=== PATIENT | male | born 1945 | race Caucasian/White ===

== ENCOUNTER 2021-06-14 09:19 | Inpatient (IN) ==
[2021-06-14] MEDS ORDERED: cefTRIAXone 1 GM VIAL IV ONE (10:05)
[2021-06-14] MEDS ORDERED: morphine 4 MG/ML VIAL IV ONE (10:05)
--- NOTE | 2021-06-14 10:05 | Emergency Department Note ---
Lower Extremity Injury HPI General Chief Complaint: Extremity Injury, Lower Stated Complaint: Left Foot Wound Time Seen by Provider: 06/14/21 09:55 Source: patient Mode of arrival: ambulatory Limitations: no limitations History of Present Illness HPI Narrative: Patient is a 75-year-old gentleman who arrives the emergency department by private vehicle complaining of a left foot wound. History is provided by the p trey as well as discussion with his wound care physician prior to his arrival. The patient stepped on pulse tree nail 2 weeks ago which penetrated his shoe and punctured his foot. Ever since he has been having pain and worsening swelling in his left foot. He saw his wound care physician today who unroofed cultured and packed an abscess in his foot. He was then sent to the emergency department for labs and imaging and IV antibiotics. The patient has been having pain in his left foot that is constantly present. He has tried taking Tylenol at home without any improvement in his symptoms. He denies any associated fever or chills. Related Data Home Medications Medication Instructions Recorded Confirmed aspirin 325 mg capsule 325 mg PO DAILY 06/14/21 06/14/21 atorvastatin 80 mg tablet 80 mg PO QDAY 06/14/21 06/14/21 cholecalciferol (vitamin D3) 50 50 mcg PO QDAY 06/14/21 06/14/21 mcg (2,000 unit) capsule (Vitamin D3) empagliflozin 25 mg tablet 25 mg PO QDAY 06/14/21 06/14/21 insulin glargine 100 unit/mL 36 unit SUBCUT QAM 06/14/21 06/14/21 subcutaneous solution (Lantus U-100 Insulin) lisinopril 10 mg tablet 10 mg PO QDAY 06/14/21 06/14/21 memantine 5 mg tablet 5 mg PO QAM 06/14/21 06/14/21 omega-3 fatty acids-vitamin E 1 cap PO BID 06/14/21 06/14/21 1,000 mg capsule pregabalin 50 mg capsule 50 mg PO QDAY 06/14/21 06/14/21 spironolactone 25 mg tablet 25 mg PO QDAY 06/14/21 06/14/21 Allergies Allergy/AdvReac Type Severity Reaction Status Date / Time No Known Drug Allergies Allergy Unverified 09/26/15 13:31 Review of Systems ROS ROS Narrative: Narrative: All systems ED: reviewed and negative except as stated. Constitutional: Denies fever or chills Respiratory: Denies shortness of breath or cough Gastrointestinal: Denies abdominal pain, nausea, vomiting or diarrhea PFSH Narrative Patient History Narrative: Narrative: Medical/Surgical/Family History All Active Problems (Updated 06/15/21 @ 08:01 by Maycol Tai DO) Puncture wound (Acute) Abscess or cellulitis of foot (Acute) Type 2 diabetes mellitus (Acute) Encounter for wound re-check (Acute) Social History Smoking Status: Never smoker Alcohol Intake Frequency: does not drink Substance Use: does not use Exam Narrative Narrative: I reviewed the vital signs. Gen -patient is awake and alert and in no acute distress. HEENT -head is atraumatic. There is no conjunctival pallor or scleral icterus. Resp -breathing is nonlabored. There is no cyanosis. Patient is able speak comfortably in full sentences while on room air. Derm -skin is warm and dry. MSK -there is an ulceration with packing in place over the plantar surface of the first metatarsophalangeal joint. There is also a small superficial ulceration over the dorsal surface of the distal first metatarsal. There is significant surrounding erythema and edema of the soft tissues which are quite tender to palpation. There is no palpable fluctuance or crepitus to palpation. Pain does not appear out of proportion to the examination findings. There is no pain with passive motion of the toes. Dorsalis pedis and posterior tibial pulse are palpable. Psych -patient has a full affect. Patient does not appear internally stimulated. Neuro -patient answers questions appropriately with fluent speech. Patient moves all present extremities equally. There is no facial asymmetry. General Limitations: no limitations Course Vital Signs Vital signs: Vital Signs Temperature 97.5 F 06/14/21 09:20 Pulse Rate 99 H 06/14/21 09:20 Blood Pressure 89/42 06/14/21 09:20 Temperature 98.2 F 06/15/21 07:04 Pulse Rate 57 L 06/15/21 07:04 Respiratory Rate 12 06/15/21 07:04 Blood Pressure 108/67 06/15/21 07:04 Pulse Oximetry (%) 94 06/15/21 07:04 [facility] MDM Narrative Medical decision making narrative: Patient presents with worsening swelling and drainage from a chronic foot wound. He has a low normal blood pressure on arrival but has a normal lactate. X-rays do reveal findings concerning for osteomyelitis and he has significantly elevated. Given this, I recommended the patient be admitted and he is agreeable. I discussed the patient's history examination and diagnostic findings with Dr. Payne, who agrees with the plan of care and accepts admission. Lab Data Lab results reviewed: Yes I reviewed the patient's lab results. Result diagrams: 06/14/21 10:12 06/15/21 05:46 Labs: Lab Results 06/14/21 06/14/21 06/14/21 Range/Units 10:12 10:12 10:12 WBC 7.5 (4.5-11.0) K/mcL RBC 5.30 (4.63-6.08) M/mcL Hgb 15.8 (13.7-17.5) g/dL Hct 48.8 (40.1-51.0) % POC Hct 51 (41-55) % MCV 92.1 (80.0-100.0) fL MCH 29.8 (26.0-34.0) pg MCHC 32.4 (31.0-36.0) g/dL RDW 14.7 H (11.5-14.5) % Plt Count 226 (140-440) K/mcL MPV 10.5 H (7.4-10.4) fL Neut % (Auto) 68.7 (38.0-78.0) % Lymph % (Auto) 16.0 (15.5-49.0) % [place] % (Auto) 14.1 H (1.0-12.0) % Eos % (Auto) 0.9 (0.0-7.0) % Baso % (Auto) 0.3 (0.0-2.0) % Lymph # (Auto) 1.19 L (1.50-4.80) K/mcL [place] # (Auto) 1.05 H (0.10-0.90) K/mcL Eos # (Auto) 0.07 (0.00-0.70) K/mcL Baso # (Auto) 0.02 (0.00-0.30) K/mcL Absolute Neutrophils 5.12 (1.80-8.00) K/mcL ESR 66 H (0-20) mm/hr VBG Lactic Acid 2.0 (0.5-2.0) mmol/L POC Sodium 138 (133-145) mEq/L POC Potassium 4.7 (3.3-5.1) mEql/L POC Chloride 102 (96-108) mEq/L POC Total CO2 24 (22-30) mmol/L POC BUN 42 H (6-20) mg/dL POC Creatinine 1.4 H (0.6-1.2) mg/dL POC Glucose 251 H (70-105) mg/dL POC WB Ioniz Calcium 1.15 L (1.16-1.32) mmEq/L C-Reactive Protein 5.60 H (0.03-0.80) mg/dL ED POC Tests ED POC Tests: VISHNU - SARS Antigen Negative Discharge Plan Patient/Caregiver Discharge Instructions Pt seen by [employer]/PA only: Yes Clinical Impression: Abscess or cellulitis of foot Patient Disposition: Xfer As Outpt/Obs ([facility]) Discharge Date/Time: 06/14/21 15:51
[2021-06-14] MEDS ORDERED: 0.9 % SODIUM CHLORIDE 1,000 ML IV ONE (10:24)
[2021-06-14 10:31] LABS: POC Blood Urea Nitrogen 42 mg/dL (6-20); POC CO2 24 mmol/L (22-30); POC Calcium, Ionized 1.15 mmEq/L (1.16-1.32); POC Chloride 102 mEq/L (96-108); POC Creatinine 1.4 mg/dL (0.6-1.2); POC Glucose, Random 251 mg/dL (70-105); POC Hematocrit 51 % (41-55); POC Potassium 4.7 mEql/L (3.3-5.1); POC Sodium 138 mEq/L (133-145)
--- NOTE | 2021-06-14 10:42 | XRay Report ---
CLINICAL INFORMATION: Cellulitis COMPARISON: CT approximately six weeks prior 05/03/2021 FINDINGS: Since the CT, moderate osteolysis is developed in the first MTP periarticular region with destruction of the proximal phalangeal base and the metatarsal head. Joint space is also severely narrow. Findings are compatible with septic arthritis with complicating adjacent osteomyelitis. There is moderate periarticular soft tissue swelling. IMPRESSION: Moderate osteolysis in the first MTP periarticular region with severe joint space narrowing developing over just the past six weeks. Findings are highly suspicious for septic arthritis with complicating adjacent osteomyelitis Interpreted and Authenticated by: Stephane Farrell 06/14/21
[2021-06-14 11:17] LABS: Basophils # (Auto) 0.02 K/mcL (0.00-0.30); Basophils % (Auto) 0.3 % (0.0-2.0); Eosinophils # (Auto) 0.07 K/mcL (0.00-0.70); Eosinophils % (Auto) 0.9 % (0.0-7.0); Hematocrit 48.8 % (40.1-51.0); Hemoglobin 15.8 g/dL (13.7-17.5); Lymphocytes # (Auto) 1.19 K/mcL (1.50-4.80); Mean Cell Volume 92.1 fL (80.0-100.0); Mean Corpuscular HGB Conc 32.4 g/dL (31.0-36.0); Mean Platelet Volume 10.5 fL (7.4-10.4); Monocytes # (Auto) 1.05 K/mcL (0.10-0.90); Monocytes % (Auto) 14.1 % (1.0-12.0); Neutrophils % (Auto) 68.7 % (38.0-78.0); Platelet Count 226 K/mcL (140-440); Red Cell Distribution Width 14.7 % (11.5-14.5); WBC 7.5 K/mcL (4.5-11.0)
[2021-06-14 11:35] LABS: Erythrocyte Sedimentation Rate 66 mm/hr (0-20)
--- NOTE | 2021-06-14 14:21 | Internal Med History&Physical ---
HPI History of Present Illness Patient information: Note initiated : 06/14/21 at 2:11 pm Service Date, if different from initiated Date: [] Patient: Garth Chavez 75 y/o M admitted on for Left Foot Wound. Chief Complaint: [] Chief complaint: Foot infection History of present illness: Mr. Chavez is a 75 year old male with a history of type 2 diabetes mellitus, chronic kidney disease stage III who was sent to the emergency department by wound care due to concern of osteomyelitis involving his right foot. In late April the patient stepped on a nail that went through his shoe and he has been struggling with an infection in his right foot ever since. The patient has been on antibiotic treatment with doxycycline and ciprofloxacin. The wound infection initially improved however he later developed redness over his foot. The patient was seen by his primary care provider and a couple times in the emergency department for this issue. He was referred to see Dr. Templeton in clinic who after evaluating the foot and obtaining deep cultures referred the patient to the emergency department for hospital admission, IV antibiotics and further management. In the ED the patient was afebrile, no leukocytosis however inflammatory markers are elevated. Patient's renal function is at his baseline. Review of systems Constitutional: no fever, fatigue, or weight loss Eyes: no vision changes or pain Cardiovascular: no chest pain, no palpitations Respiratory: no cough or dyspnea Gastrointestinal: no abdominal pain, no nausea, vomiting, or diarrhea Genitourinary: no dysuria or difficulty voiding Musculoskeletal: Positive for left foot infection, increasing edema. Integumentary: Positive for left foot redness. Neurological: Positive for peripheral neuropathy, no focal weakness or numbness Psychiatric: no anxiety or depression Physical exam Head: Atraumatic, normal inspection. Eyes: normal appearance, no scleral icterus. Neck: full ROM Respiratory: no respiratory distress. Cardiovascular: normal rate and rhythm, S1, S2. GI/Abdominal: soft, nontender, no guarding. Extremities: Left foot edema over first MTP joint. Neurological: CN II-XII intact, intact motor, intact sensation. Psychiatric: normal mood. Skin: Warmth, redness over first MTP P joint consistent with cellulitis. PFSH PFSH All Active Problems Puncture wound (Acute) Abscess or cellulitis of foot (Acute) Type 2 diabetes mellitus (Acute) Encounter for wound re-check (Acute) Social History alcohol intake frequency: does not drink substance use type: does not use MEDS/ALLERGIES Home Medications and Allergies Home Medications Medication Instructions Recorded Confirmed Type ciprofloxacin HCl 500 mg tablet 500 mg PO BID #14 tab 05/03/21 Rx Allergies Allergy/AdvReac Type Severity Reaction Status Date / Time No Known Drug Allergies Allergy Unverified 09/26/15 13:31 EXAM Constitutional Vitals: Temp Pulse BP Pulse Ox 97.5 F 60 105/67 94 06/14/21 09:20 06/14/21 12:45 06/14/21 12:45 06/14/21 12:45 DATA Data Completed and Pending Labs: Labs from last 24 hours 06/14/21 06/14/21 06/14/21 10:12 10:12 10:12 WBC 7.5 RBC 5.30 Hgb 15.8 Hct 48.8 POC Hct 51 MCV 92.1 MCH 29.8 MCHC 32.4 RDW 14.7 H Plt Count 226 MPV 10.5 H Neut % (Auto) 68.7 Lymph % (Auto) 16.0 [place] % (Auto) 14.1 H Eos % (Auto) 0.9 Baso % (Auto) 0.3 Lymph # (Auto) 1.19 L [place] # (Auto) 1.05 H Eos # (Auto) 0.07 Baso # (Auto) 0.02 Absolute Neutrophils 5.12 ESR 66 H VBG Lactic Acid 2.0 POC Sodium 138 POC Potassium 4.7 POC Chloride 102 POC Total CO2 24 POC BUN 42 H POC Creatinine 1.4 H POC Glucose 251 H POC WB Ioniz Calcium 1.15 L C-Reactive Protein 5.60 H A/P Narrative A/P Narrative: Assessment: 75-year-old male with a history of type 2 diabetes mellitus and chronic kidney disease stage III who stepped on a nail in late April has been struggling with a foot infection ever since referred to the emergency department for further evaluation of possible osteomyelitis. In the emergency department, the patient had an x-ray of his left foot that showed moderate osteolysis of the first MTP with severe joint space narrowing highly suspicious for septic arthritis and adjacent osteomyelitis. #Diabetic foot infection #Osteomyelitis of first MTP periarticular region #Probable septic arthritis of first MTP joint #Type 2 diabetes mellitus #Chronic kidney disease stage III Plan -Plan is to treat this with IV antibiotics and follow clinically. -Vancomycin, cefepime, metronidazole for now. -Surgical cultures obtained prior to admission-the patient was on doxycycline and ciprofloxacin prior to admission. -Follow blood cultures. -De-escalate antibiotics based on culture results. -PICC line pending no growth in blood cultures. -Lantus 10 units at bedtime and correction Humalog SSI-medium. -Hemoglobin A1c. -Analgesics as needed -Monitor renal function periodically. -Ankle brachial index, consider duplex imaging. -Wound care surgery consult: Dr. Jareth Amaya. -Consistent carbohydrate diet. -DVT prophylaxis: Heparin SQ -CODE STATUS: Full -Disposition: Probably home on IV antibiotics via PICC line with home antibiotic infusions versus antibiotics at the infusion center, less likely SNF. Treatment course will be 6 weeks of IV antibiotics possibly followed by oral suppressive antibiotic therapy. Time Spent With Patient Time: Total time spent is greater than 50% in coordination of care (as documented) at patient's floor/unit and/or counseling patient:
[2021-06-14] MEDS ORDERED: DEXTROSE 31 GM ORAL.SUSP PO PRN (16:17)
[2021-06-14] MEDS ORDERED: VANCOMYCIN PER PHARMACY IV SCH (16:17)
[2021-06-14] MEDS ORDERED: DEXTROSE 50% 50 ML VIAL IV PRN (16:17)
[2021-06-14] MEDS ORDERED: ONDANSETRON 4 MG/2 ML VIAL IV PRN (16:17)
[2021-06-14] MEDS ORDERED: ACETAMINOPHEN 325 MG TABLET PO PRN (16:17)
[2021-06-14] MEDS: INSULIN LISPRO 1 UNIT/0.01 ML UNIT SQ SCH ×2 (17:00→21:55)
[2021-06-14] MEDS: CEFEPIME 2 GM VIAL IV SCH (17:16)
[2021-06-14 17:25] LABS: ALT/SGPT 15 U/L (<40); AST/SGOT 16 U/L (<40); Albumin 3.2 gm/dL (3.2-5.2); Albumin/Globulin Ratio 0.8 (1.0-2.3); Alkaline Phosphatase 104 U/L (39-117); Bilirubin,Direct < 0.2 mg/dL (0-0.3); Bilirubin,Total 0.6 mg/dL (0.1-1.0); Blood Urea Nitrogen 30 mg/dL (8-23); Calcium 9.2 mg/dL (8.6-10.4); Carbon Dioxide 23 mmol/L (22-30); Chloride 104 mmol/L (96-108); Glomerular Filtration Rate 54; Glucose 141 mg/dL (70-105); Lactate Dehydrogenase 165 U/L (135-225); Phosphorous 3.3 mg/dL (2.5-4.5); Triglycerides 145 mg/dL (<150); Uric Acid 6.2 mg/dL (2.5-8.0)
[2021-06-14 17:47] LABS: Estimated Average Glucose(eAG) 252 mg/dL; Hemoglobin A1C 10.4 % Hgb (4.0-6.0)
[2021-06-14] MEDS ORDERED: VANCOMYCIN 1,500 MG in 0.9 % SODIUM CHLORIDE 500 ML IV ONE (18:00)
--- NOTE | 2021-06-14 18:21 | General Surgery Consult Note ---
HPI Data of Consult Consult date: 06/14/21 Requesting physician: Oliver Payne Primary Care Provider: Tim Mata Consult Narrative Patient Information: Note initiated : 06/14/21 at 6:20 pm Service Date, if different from initiated Date: [] Patient: Garth Chavez 75 y/o M admitted on 06/14/21 for Left Foot Wound. Chief Complaint:75/M Established patient at wound care center. Sustained penetrating nail injury under LEFT great toe over 2 weeks ago. Failed initial out patient treatment. He had acute inflammatory changes with abscess / cellulitis around wound site and concern for septic arthritis. I had done initial debridement and of wound sites and obtained deep tissue specimen for c/s, before sending him to ER. Evaluated in ER and admitted to Med Surg floor for continuity of care, Chief complaint: Interval changes: deteriorating sound site. LEFT foot plantar DFU Stage 4 Reason for consult: Evaluation and treatment cc:: CC: Oliver Payne MD [facility] All Active Problems (Updated 06/15/21 @ 08:01 by Maycol Tai DO) Puncture wound (Acute) Abscess or cellulitis of foot (Acute) Type 2 diabetes mellitus (Acute) Encounter for wound re-check (Acute) Social History alcohol intake frequency: does not drink substance use type: does not use MEDS/ALLERGIES Home Medications and Allergies Home Medications Medication Instructions Recorded Confirmed Type aspirin 325 mg capsule 325 mg PO DAILY 06/14/21 06/14/21 History atorvastatin 80 mg tablet 80 mg PO QDAY 06/14/21 06/14/21 History cholecalciferol (vitamin D3) 50 50 mcg PO QDAY 06/14/21 06/14/21 History mcg (2,000 unit) capsule (Vitamin D3) empagliflozin 25 mg tablet 25 mg PO QDAY 06/14/21 06/14/21 History insulin glargine 100 unit/mL 36 unit SUBCUT QAM 06/14/21 06/14/21 History subcutaneous solution (Lantus U-100 Insulin) lisinopril 10 mg tablet 10 mg PO QDAY 06/14/21 06/14/21 History memantine 5 mg tablet 5 mg PO QAM 06/14/21 06/14/21 History omega-3 fatty acids-vitamin E 1 cap PO BID 06/14/21 06/14/21 History 1,000 mg capsule pregabalin 50 mg capsule 50 mg PO QDAY 06/14/21 06/14/21 History spironolactone 25 mg tablet 25 mg PO QDAY 06/14/21 06/14/21 History Allergies Allergy/AdvReac Type Severity Reaction Status Date / Time No Known Drug Allergies Allergy Unverified 09/26/15 13:31 Physical Examination Vital Signs Vital signs: Temp Pulse Resp BP Pulse Ox 98.0 F 65 20 113/76 95 06/14/21 16:00 06/14/21 16:00 06/14/21 16:00 06/14/21 16:00 06/14/21 16:00 General physical appearance General physical exam: well developed, well nourished, moderate pain and other (Warm foot, erythematous , edematous wound site and periwound soft tissues and fluctuant area dorsally over MPJ. LEFT great toe.) Eyes Eye exam: PERRL and normal ocular movement ENT ENT exam: normal pinna, normal mucosa and no congestion Head Head exam IM: Present atraumatic and normocephalic Neck Neck exam: no masses, no lymphadenopathy and no venous distension Cardiovascular Cardiovascular exam IM: Present normal rate and rhythm Respiratory Respiratory exam: normal expansion and clear to auscultation Abdomen Abdomen: Present soft, non tender and bowel sounds Integumentary Integumentary: Present other (LEFT forefoot plantar DFU under great toe Stage 4. Dorsal forefoot warm, edematous, with area of fluctuance bertween 1st and 2nd toes.) Neurologic Neurologic: Present other (Diabetic peripheral neuropathy LEFT foot, ankle and leg. Cranial nerves normal. Moves all extremities. NO lateralizing signs. ) Musculoskeletal Musculoskeletal: Present normal gait (NWB Left forefoot because of apin, swelling and discomfort. Acute inflammatory and infection changes LEFT great toe and proximal forefoot,), normal posture and other (NWB) Psychiatric Psychiatric: Present oriented to time, oriented to person, oriented to place, speech is normal and memory intact Results Labs Result diagrams: 06/14/21 10:12 06/15/21 05:46 Labs: Abnormal lab results 06/14/21 06/14/21 06/14/21 Range/Units 10:12 10:12 16:31 RDW 14.7 H (11.5-14.5) % MPV 10.5 H (7.4-10.4) fL [place] % (Auto) 14.1 H (1.0-12.0) % Lymph # (Auto) 1.19 L (1.50-4.80) K/mcL [place] # (Auto) 1.05 H (0.10-0.90) K/mcL ESR 66 H (0-20) mm/hr POC BUN 42 H (6-20) mg/dL BUN 30 H (8-23) mg/dL Creatinine 1.3 H (0.7-1.2) mg/dL POC Creatinine 1.4 H (0.6-1.2) mg/dL Glucose 141 H (70-105) mg/dL POC Glucose 251 H (70-105) mg/dL Hemoglobin A1c 10.4 H (4.0-6.0) % Hgb POC WB Ioniz Calcium 1.15 L (1.16-1.32) mmEq/L GGT 71 H (8-61) U/L C-Reactive Protein 5.60 H (0.03-0.80) mg/dL Globulin 4.0 H (2.2-3.7) gm/dL Albumin/Globulin Ratio 0.8 L (1.0-2.3) Diabetes panel 06/14/21 Range/Units 16:31 Sodium 136 (133-145) mmol/L Potassium 4.5 (3.3-5.1) mmol/L Chloride 104 (96-108) mmol/L Carbon Dioxide 23 (22-30) mmol/L BUN 30 H (8-23) mg/dL Creatinine 1.3 H (0.7-1.2) mg/dL Glucose 141 H (70-105) mg/dL Hemoglobin A1c 10.4 H (4.0-6.0) % Hgb Calcium 9.2 (8.6-10.4) mg/dL AST 16 (<40) U/L ALT 15 (<40) U/L Alkaline Phosphatase 104 (39-117) U/L Total Protein 7.2 (5.9-8.4) gm/dL Albumin 3.2 (3.2-5.2) gm/dL Triglycerides 145 (<150) mg/dL Calcium panel 06/14/21 Range/Units 16:31 Calcium 9.2 (8.6-10.4) mg/dL Phosphorus 3.3 (2.5-4.5) mg/dL Albumin 3.2 (3.2-5.2) gm/dL Pituitary panel 06/14/21 Range/Units 16:31 Sodium 136 (133-145) mmol/L Potassium 4.5 (3.3-5.1) mmol/L Chloride 104 (96-108) mmol/L Carbon Dioxide 23 (22-30) mmol/L BUN 30 H (8-23) mg/dL Creatinine 1.3 H (0.7-1.2) mg/dL Glucose 141 H (70-105) mg/dL Calcium 9.2 (8.6-10.4) mg/dL Adrenal panel 06/14/21 Range/Units 16:31 Sodium 136 (133-145) mmol/L Potassium 4.5 (3.3-5.1) mmol/L Chloride 104 (96-108) mmol/L Carbon Dioxide 23 (22-30) mmol/L BUN 30 H (8-23) mg/dL Creatinine 1.3 H (0.7-1.2) mg/dL Glucose 141 H (70-105) mg/dL Calcium 9.2 (8.6-10.4) mg/dL Total Bilirubin 0.6 (0.1-1.0) mg/dL AST 16 (<40) U/L ALT 15 (<40) U/L Alkaline Phosphatase 104 (39-117) U/L Total Protein 7.2 (5.9-8.4) gm/dL Albumin 3.2 (3.2-5.2) gm/dL All other labs normal. A/P Narrative A/P Narrative: Assessment: Infected LEFT foot DFU under great toe Cellulitis, CSSSI Concern for Septic Arthritis. Plan: Agree with ongoing medial management IV antibiotics per Dr. Payne. Will see patient later with wound care nurse. Time Spent With Patient Time: Total time spent is greater than 50% in coordination of care (as documented) at patient's floor/unit and/or counseling patient: Total time spent with greater than 50% in coordination of care (as documented) at patient's floor/unit and/or counseling patient:: 15 - 24 minutes
[2021-06-14] MEDS: metroNIDAZOLE 500 MG in PREMIX 1 BAG IV SCH (19:08)
[2021-06-14] MEDS: SENNOSIDES 1 TABLET PO SCH (20:37)
[2021-06-14] MEDS: DOCUSATE SODIUM 100 MG CAPSULE PO SCH (20:37)
[2021-06-14] MEDS: HYDROcodone/APAP 5/325MG TABLET PO PRN (21:54)
[2021-06-14] MEDS: INSULIN GLARGINE, HUMAN 1 UNIT/0.01 ML SQ SCH (21:55)
[2021-06-14] MEDS: HEPARIN 5,000 UNIT/ML VIAL SQ SCH (21:56)
[2021-06-14] MEDS: 0.9 % SODIUM CHLORIDE 10 ML SYRINGE IV SCH (21:56)
[2021-06-15] MEDS: metroNIDAZOLE 500 MG in PREMIX 1 BAG IV SCH ×4 (01:07→21:52)
[2021-06-15] MEDS: HYDROcodone/APAP 5/325MG TABLET PO PRN ×4 (01:08→20:07)
[2021-06-15] MEDS: 0.9 % SODIUM CHLORIDE 10 ML SYRINGE IV SCH ×3 (06:00→23:10)
[2021-06-15 07:00] LABS: ALT/SGPT 14 U/L (<40); AST/SGOT 14 U/L (<40); Albumin/Globulin Ratio 0.8 (1.0-2.3); Alkaline Phosphatase 91 U/L (39-117); Bilirubin,Direct < 0.2 mg/dL (0-0.3); Bilirubin,Total 0.4 mg/dL (0.1-1.0); Blood Urea Nitrogen 35 mg/dL (8-23); Calcium 8.7 mg/dL (8.6-10.4); Carbon Dioxide 22 mmol/L (22-30); Chloride 106 mmol/L (96-108); Globulin 3.6 gm/dL (2.2-3.7); Glomerular Filtration Rate 49; Glucose 169 mg/dL (70-105); Lactate Dehydrogenase 142 U/L (135-225); Phosphorous 3.9 mg/dL (2.5-4.5); Triglycerides 173 mg/dL (<150); Uric Acid 7.4 mg/dL (2.5-8.0)
[2021-06-15] MEDS: INSULIN LISPRO 1 UNIT/0.01 ML UNIT SQ SCH ×5 (07:30→21:54)
[2021-06-15] MEDS: CEFEPIME 2 GM VIAL IV SCH ×2 (07:51→21:59)
[2021-06-15] MEDS: MEMANTINE 10 MG TABLET PO SCH (08:52)
[2021-06-15] MEDS: ASPIRIN 81 MG TAB.CHEW PO SCH (08:52)
[2021-06-15] MEDS: PREGABALIN 25 MG CAPSULE PO SCH (08:53)
[2021-06-15] MEDS: DOCUSATE SODIUM 100 MG CAPSULE PO SCH ×2 (08:53→21:52)
[2021-06-15] MEDS: HEPARIN 5,000 UNIT/ML VIAL SQ SCH ×2 (08:53→21:58)
[2021-06-15] MEDS: HYDROmorphone 0.5 MG/0.5 ML SYRINGE IV PRN ×2 (09:31→11:36)
[2021-06-15] MEDS: VANCOMYCIN 1,500 MG in 0.9 % SODIUM CHLORIDE 500 ML IV SCH (11:52)
--- NOTE | 2021-06-15 12:26 | General Surgery Progress Note ---
SUBJECTIVE Subjective Patient information: Note initiated : 06/15/21 at 12:21 pm Service Date, if different from initiated Date: [] Patient: Garth Chavez 75 y/o M admitted on 06/14/21 for Left Foot Wound. Chief Complaint: [] Additional PMFSH (Level 3 Only): Patient seen with Fredrick RN, Wound care nurse. Satisfactory progress. Looks good and feels well. Constitutional Vitals: Vital Signs Temp Pulse Resp BP Pulse Ox 98.2 F 57 L 12 108/67 94 06/15/21 07:04 06/15/21 08:00 06/15/21 07:04 06/15/21 07:04 06/15/21 07:04 Period Temp Pulse Resp BP Sys/Barry Pulse Ox Last 24 Hr 98.0 F-98.9 F 57-88 12-20 105-125/65-76 92-98 Intake and Output 06/14/21 06/15/21 06/15/21 21:59 05:59 13:59 Intake Total 600 100 100 Balance 600 100 100 Weight 183 lb 12.8 oz Intake & Output: Intake & Output 06/14/21 06/15/21 06/15/21 21:59 05:59 13:59 Intake Total 600 100 100 Balance 600 100 100 Weight 183 lb 12.8 oz Intake: IV 600 100 100 Vancomycin 1,500 mg In Sodium 500 Chloride 0.9% 500 ml @ 333.3 mls/hr IV ONCE ONE Rx#: [id number] Flagyl 500 mg In Premix 1 Bag @ 100 100 100 100 mls/hr IV Q8H MELE Rx#: [id number] Other: # Voids 3 Exam: AVSS. SARAH unremarkable L/E. Resolving inflammatory changes. Labs. WBC trending down. Cultures / Sensitivities pending. Local wound care discussed. A/P Narrative A/P Narrative: Assessment: Satisfactory progress. Wound care / activities as ordered. Plan: Continue present management. Reassess / deescalate antibiotics later. Time Spent With Patient Time: Total time spent is greater than 50% in coordination of care (as documented) at patient's floor/unit and/or counseling patient: Total time spent with greater than 50% in coordination of care (as documented) at patient's floor/unit and/or counseling patient:: 15 - 24 minutes
--- NOTE | 2021-06-15 19:05 | Internal Med Progress Note ---
SUBJECTIVE Subjective Patient information: Note initiated : 06/15/21 at 7:03 pm Service Date, if different from initiated Date: [] Patient: Garth Chavez 75 y/o M admitted on 06/14/21 for Left Foot Wound. Chief Complaint: [] Interval history: Mr. Chavez is a 75 year old male with a history of type 2 diabetes mellitus, chronic kidney disease stage III who was sent to the emergency department by wound care due to concern of osteomyelitis involving his right foot. In late April the patient stepped on a nail that went through his shoe and he has been struggling with an infection in his right foot ever since. The patient has been on antibiotic treatment with doxycycline and ciprofloxacin. The wound infection initially improved however he later developed redness over his foot. The patient was seen by his primary care provider and a couple times in the emergency department for this issue. He was referred to see Dr. Templeton in [facility] who after evaluating the foot and obtaining deep cultures referred the patient to the emergency department for hospital admission, IV antibiotics and further management. In the ED the patient was afebrile, no leukocytosis however inflammatory markers are elevated. Patient's renal function is at his baseline. 06/15 Stable overnight, blood cultures showing no growth to date. Continues on van comycin, cefepime, metronidazole IV, awaiting surgical culture results. Physical exam Head: Atraumatic, normal inspection. Eyes: normal appearance, no scleral icterus. Neck: full ROM Respiratory: no respiratory distress. Cardiovascular: normal rate and rhythm, S1, S2. GI/Abdominal: soft, nontender, no guarding. Extremities: Left foot edema over first MTP joint. Neurological: CN II-XII intact, intact motor, intact sensation. Psychiatric: normal mood. Skin: Warmth, redness over first MTP P joint consistent with cellulitis. Constitutional Vitals: Vital Signs Temp Pulse Resp BP Pulse Ox 98.9 F 59 L 18 126/75 94 06/15/21 16:00 06/15/21 16:00 06/15/21 16:00 06/15/21 16:00 06/15/21 16:00 Period Temp Pulse Resp BP Sys/Barry Pulse Ox Last 24 Hr 98.0 F-98.9 F 57-88 12-18 108-126/65-75 93-96 Intake and Output 0306/15/21 06/15/21 05:59 13:59 21:59 Intake Total 100 600 100 Balance 100 600 100 Weight 83.37 kg Patient Weight 06/16/21 05:59 Weight 83.37 kg Intake & Output: Intake & Output 06/15/21 06/15/21 06/15/21 05:59 13:59 21:59 Intake Total 100 600 100 Balance 100 600 100 Weight 83.37 kg Intake: IV 100 600 100 Vancomycin 1,500 mg In Sodium 500 Chloride 0.9% 500 ml @ 333.3 mls/hr IV Q24H [facility] Rx#: [id number] Flagyl 500 mg In Premix 1 Bag @ 100 100 100 100 mls/hr IV Q8H [facility] Rx#: [id number] Other: Meal Lunch Percent of Meal Consumed 100% Feeding Ability Independent # Voids 3 OBJ DATA Labs CBC & Chem 7: 06/14/21 10:12 06/15/21 05:46 Labs: Abnormal Lab Results 06/15/21 06/14/21 06/14/21 05:46 16:31 10:12 RDW MPV [place] % (Auto) Lymph # (Auto) [place] # (Auto) ESR POC BUN 42 H BUN 35 H 30 H Creatinine 1.4 H 1.3 H POC Creatinine 1.4 H Glucose 169 H 141 H POC Glucose 251 H Hemoglobin A1c 10.4 H POC WB Ioniz Calcium 1.15 L GGT 71 H C-Reactive Protein 5.60 H Albumin 3.0 L Globulin 4.0 H Albumin/Globulin Ratio 0.8 L 0.8 L Triglycerides 173 H 06/14/21 10:12 RDW 14.7 H MPV 10.5 H [place] % (Auto) 14.1 H Lymph # (Auto) 1.19 L [place] # (Auto) 1.05 H ESR 66 H POC BUN BUN Creatinine POC Creatinine Glucose POC Glucose Hemoglobin A1c POC WB Ioniz Calcium GGT C-Reactive Protein Albumin Globulin Albumin/Globulin Ratio Triglycerides Meds: Medications Acetaminophen (Acetaminophen 325 Mg Tablet) 650 mg PO Q6HP PRN; Protocol PRN Reason: Per Pain Protocol/Fever > 101 Hydrocodone Bitart/Acetaminophen (Hydrocodone/Apap 5/325mg Tablet) 1 tab PO Q4HP PRN; Protocol PRN Reason: Per Pain Protocol Last Admin: 06/15/21 09:32 Dose: 1 tab Documented by: Aspirin (Aspirin 81 Mg Tab.Chew) 81 mg PO DAILY [facility] Last Admin: 06/15/21 08:52 Dose: 81 mg Documented by: Atorvastatin Calcium (Atorvastatin 40 Mg Tablet) 80 mg PO [facility] Cefepime HCl (Cefepime 2 Gm Vial) 2 gm IV Q12H [facility]; Protocol Last Admin: 06/15/21 07:51 Dose: 2 gm Documented by: Dextrose (Dextrose 50% 50 Ml Vial) 0 ml IV UD PRN PRN Reason: Per Sliding Scale Diagnostic Test (Pha) (Accu-Chek 1 Each Strip) 1 each FS [facility] Last Admin: 06/15/21 17:14 Dose: 1 each Documented by: Docusate Sodium (Docusate Sodium 100 Mg Capsule) 100 mg PO BID [facility] Last Admin: 06/15/21 08:53 Dose: 100 mg Documented by: Glucose (Dextrose 31 Gm Oral.Susp) 15 gm PO PRN PRN PRN Reason: Hypoglycemia Heparin Sodium (Porcine) (Heparin 5,000 Unit/Ml Vial) 5,000 unit SQ Q12 [facility] Last Admin: 06/15/21 08:53 Dose: 5,000 unit Documented by: Hydromorphone HCl (Hydromorphone 0.5 Mg/0.5 Ml Syringe) 0.5 mg IV Q2HP PRN; Protocol PRN Reason: Per Pain Protocol Last Admin: 06/15/21 11:36 Dose: 0.5 mg Documented by: Metronidazole 500 mg/ Premix 100 mls @ 100 mls/hr IV Q8H [facility]; Protocol Last Infusion: 06/15/21 15:25 Dose: Infused Documented by: Vancomycin HCl 1,500 mg/ (Sodium Chloride) 500 mls @ 333.3 mls/hr IV Q24H [facility] Last Infusion: 06/15/21 13:23 Dose: Infused Documented by: Insulin Glargine (Insulin Glargine, Human 1 Unit/0.01 Ml) 10 unit SQ [facility] Last Admin: 06/14/21 21:55 Dose: 10 unit Documented by: Insulin Human Lispro (Insulin Lispro 1 Unit/0.01 Ml Unit) 0 unit SQ [facility]; Protocol Last Admin: 06/15/21 17:15 Dose: 6 units Documented by: Memantine (Memantine 10 Mg Tablet) 5 mg PO DAILY [facility] Last Admin: 06/15/21 08:52 Dose: 5 mg Documented by: Mupirocin (Mupirocin Oint 2% 22gm) 1 dose TOPICAL BID [facility] Ondansetron HCl (Ondansetron 4 Mg/2 Ml Vial) 4 mg IV Q6HP PRN PRN Reason: Nausea And Vomiting Pregabalin (Pregabalin 25 Mg Capsule) 50 mg PO QDAY [facility] Last Admin: 06/15/21 08:53 Dose: 50 mg Documented by: Senna (Sennosides 1 Tablet) 2 tab PO HS [facility] Last Admin: 06/14/21 20:37 Dose: Not Given Documented by: Sodium Chloride (0.9 % Sodium Chloride 10 Ml Syringe) 10 ml IV Q8 [facility] Last Admin: 06/15/21 14:26 Dose: 10 ml Documented by: Vancomycin HCl (Vancomycin Per Pharmacy) 1 order IV UD [facility]; Protocol A/P Narrative A/P Narrative: Assessment: 75-year-old male with a history of type 2 diabetes mellitus and chronic kidney disease stage III who stepped on a nail in late April has been struggling with a foot infection ever since referred to the emergency department for further evaluation of possible osteomyelitis. In the emergency department, the patient had an x-ray of his left foot that showed moderate osteolysis of the first MTP with severe joint space narrowing highly suspicious for septic arthritis and adjacent osteomyelitis. #Diabetic foot infection #Osteomyelitis of first MTP periarticular region #Probable septic arthritis of first MTP joint #Type 2 diabetes mellitus -Hemoglobin A1c was 10.4 #Chronic kidney disease stage III Plan -Vancomycin, cefepime, metronidazole for now. -Surgical cultures obtained prior to admission-the patient was on doxycycline and ciprofloxacin prior to admission. -Follow blood cultures. -De-escalate antibiotics based on culture results. -If blood culture showing no growth to date tomorrow will place PICC line. -Lantus 10 units at bedtime, Humalog 5 units AC at bedtime,correction Humalog SSI-medium. -Continue aspirin, atorvastatin, Lyrica, Namenda. -Holding home empagliflozin until diabetic wound heels- studies have shown an increased risk of lower limb amputation. -Analgesics as needed -Monitor renal function periodically. -Wound care surgery consult: Dr. Jareth Caruso -Consistent carbohydrate diet. -DVT prophylaxis: Heparin SQ -CODE STATUS: Full -Disposition: Probably home on IV antibiotics via PICC line with home antibiotic infusions versus antibiotics at the infusion center, less likely SNF. Treatment course will be 6 weeks of IV antibiotics possibly followed by oral suppressive antibiotic therapy. May need to discharge on insulin regimen for diabetes mellitus as hemoglobin A1c was 10.4. Time Spent With Patient Time: Total time spent is greater than 50% in coordination of care (as documented) at patient's floor/unit and/or counseling patient: QUALITY VTE Deep Vein Thrombosis/Pulmonary Embolism Present on Admission: No
[2021-06-15] MEDS: MUPIROCIN OINT 2% 22GM TOPICAL SCH (20:07)
[2021-06-15] MEDS: ATORVASTATIN 40 MG TABLET PO SCH (20:07)
[2021-06-15] MEDS: SENNOSIDES 1 TABLET PO SCH (21:52)
[2021-06-15] MEDS: INSULIN GLARGINE, HUMAN 1 UNIT/0.01 ML SQ SCH (21:58)
[2021-06-16] MEDS: 0.9 % SODIUM CHLORIDE 10 ML SYRINGE IV SCH ×4 (05:42→21:12)
[2021-06-16] MEDS: metroNIDAZOLE 500 MG in PREMIX 1 BAG IV SCH ×3 (05:43→21:09)
[2021-06-16] MEDS: INSULIN LISPRO 1 UNIT/0.01 ML UNIT SQ SCH ×7 (07:14→21:19)
[2021-06-16 07:39] LABS: ALT/SGPT 12 U/L (<40); AST/SGOT 16 U/L (<40); Albumin 3.2 gm/dL (3.2-5.2); Albumin/Globulin Ratio 0.9 (1.0-2.3); Alkaline Phosphatase 95 U/L (39-117); Bilirubin,Direct < 0.2 mg/dL (0-0.3); Bilirubin,Total 0.5 mg/dL (0.1-1.0); Blood Urea Nitrogen 32 mg/dL (8-23); Calcium 8.9 mg/dL (8.6-10.4); Carbon Dioxide 24 mmol/L (22-30); Chloride 104 mmol/L (96-108); Globulin 3.7 gm/dL (2.2-3.7); Glomerular Filtration Rate 54; Glucose 136 mg/dL (70-105); Lactate Dehydrogenase 167 U/L (135-225); Phosphorous 2.9 mg/dL (2.5-4.5); Triglycerides 113 mg/dL (<150); Uric Acid 6.9 mg/dL (2.5-8.0)
[2021-06-16] MEDS: MEMANTINE 10 MG TABLET PO SCH (08:49)
[2021-06-16] MEDS: DOCUSATE SODIUM 100 MG CAPSULE PO SCH ×2 (08:50→21:11)
[2021-06-16] MEDS: ASPIRIN 81 MG TAB.CHEW PO SCH (08:50)
[2021-06-16] MEDS: PREGABALIN 25 MG CAPSULE PO SCH (08:50)
[2021-06-16] MEDS: MUPIROCIN OINT 2% 22GM TOPICAL SCH ×2 (08:51→21:09)
[2021-06-16] MEDS: HEPARIN 5,000 UNIT/ML VIAL SQ SCH ×2 (08:51→21:10)
[2021-06-16] MEDS: CEFEPIME 2 GM VIAL IV SCH ×2 (08:51→21:11)
[2021-06-16] MEDS: HYDROcodone/APAP 5/325MG TABLET PO PRN ×2 (08:58→16:36)
[2021-06-16] MEDS: VANCOMYCIN 1,500 MG in 0.9 % SODIUM CHLORIDE 500 ML IV SCH (10:55)
[2021-06-16] MEDS ORDERED: 0.9 % SODIUM CHLORIDE 10 ML SYRINGE IV PRN (11:29)
--- NOTE | 2021-06-16 13:50 | Internal Med Progress Note ---
SUBJECTIVE Subjective Patient information: Note initiated : 06/16/21 at 1:49 pm Service Date, if different from initiated Date: [] Patient: Garth Chavez 75 y/o M admitted on 06/14/21 for Left Foot Wound. Chief Complaint: [] Interval history: Mr. Chavez is a 75 year old male with a history of type 2 diabetes mellitus, chronic kidney disease stage III who was sent to the emergency department by wound care due to concern of osteomyelitis involving his right foot. In late April the patient stepped on a nail that went through his shoe and he has been struggling with an infection in his right foot ever since. The patient has been on antibiotic treatment with doxycycline and ciprofloxacin. The wound infection initially improved however he later developed redness over his foot. The patient was seen by his primary care provider and a couple times in the emergency department for this issue. He was referred to see Dr. Templeton in [facility] who after evaluating the foot and obtaining deep cultures referred the patient to the emergency department for hospital admission, IV antibiotics and further management. In the ED the patient was afebrile, no leukocytosis however inflammatory markers are elevated. Patient's renal function is at his baseline. 06/15 Stable overnight, blood cultures showing no growth to date. Continues on van comycin, cefepime, metronidazole IV, awaiting surgical culture results. 06/16 No events overnight. Feels much better, pain well controlled. Blood cultures showing no growth, PICC line ordered. Continues on broad spectrum IV antibiotics, surgical cultures pending. Increased prandial Humalog to 5 units AC. Physical exam Head: Atraumatic, normal inspection. Eyes: normal appearance, no scleral icterus. Neck: full ROM Respiratory: no respiratory distress. Cardiovascular: normal rate and rhythm, S1, S2. GI/Abdominal: soft, nontender, no guarding. Extremities: Left foot edema over first MTP joint. Neurological: CN II-XII intact, intact motor, intact sensation. Psychiatric: normal mood. Skin: Warmth, redness over first MTP P joint consistent with cellulitis. Constitutional Vitals: Vital Signs Temp Pulse Resp BP Pulse Ox 97.6 F 69 22 129/74 94 06/16/21 11:26 06/16/21 11:26 06/16/21 11:26 06/16/21 11:26 06/16/21 11:26 Period Temp Pulse Resp BP Sys/Barry Pulse Ox Last 24 Hr 97.3 F-99.3 F 59-69 18-22 126-138/70-82 93-94 Intake and Output 06/15/21 06/16/21 06/16/21 21:59 05:59 13:59 Intake Total 100 100 600 Balance 100 100 600 Weight 83.37 kg Intake & Output: Intake & Output 06/15/21 06/16/21 06/16/21 21:59 05:59 13:59 Intake Total 100 100 600 Balance 100 100 600 Weight 83.37 kg Intake: IV 100 100 600 Vancomycin 1,500 mg In Sodium 500 Chloride 0.9% 500 ml @ 333.3 mls/hr IV Q24H [facility] Rx#: [id number] Flagyl 500 mg In Premix 1 Bag @ 100 100 100 100 mls/hr IV Q8H [facility] Rx#: [id number] Other: Meal Lunch Percent of Meal Consumed 100% Feeding Ability Independent # Voids 3 OBJ DATA Labs CBC & Chem 7: 06/14/21 10:12 06/16/21 06:07 Labs: Abnormal Lab Results 06/16/21 06/15/21 06/14/21 06:07 05:46 16:31 RDW M[place] % (Auto) Lymph # (Auto) [place] # (Auto) ESR POC BUN BUN 32 H 35 H 30 H Creatinine 1.3 H 1.4 H 1.3 H POC Creatinine Glucose 136 H 169 H 141 H POC Glucose Hemoglobin A1c 10.4 H POC WB Ioniz Calcium GGT 71 H C-Reactive Protein Albumin 3.0 L Globulin 4.0 H Albumin/Globulin Ratio 0.9 L 0.8 L 0.8 L Triglycerides 173 H 06/14/21 06/14/21 10:12 10:12 RDW 14.7 H MPV 10.5 H [place] % (Auto) 14.1 H Lymph # (Auto) 1.19 L [place] # (Auto) 1.05 H ESR 66 H POC BUN 42 H BUN Creatinine POC Creatinine 1.4 H Glucose POC Glucose 251 H Hemoglobin A1c POC WB Ioniz Calcium 1.15 L GGT C-Reactive Protein 5.60 H Albumin Globulin Albumin/Globulin Ratio Triglycerides Meds: Medications Acetaminophen (Acetaminophen 325 Mg Tablet) 650 mg PO Q6HP PRN; Protocol PRN Reason: Per Pain Protocol/Fever > 101 Hydrocodone Bitart/Acetaminophen (Hydrocodone/Apap 5/325mg Tablet) 1 tab PO Q4HP PRN; Protocol PRN Reason: Per Pain Protocol Last Admin: 06/16/21 08:58 Dose: 1 tab Documented by: Aspirin (Aspirin 81 Mg Tab.Chew) 81 mg PO DAILY [facility] Last Admin: 06/16/21 08:50 Dose: 81 mg Documented by: Atorvastatin Calcium (Atorvastatin 40 Mg Tablet) 80 mg PO HS [facility] Last Admin: 06/15/21 20:07 Dose: 80 mg Documented by: Cefepime HCl (Cefepime 2 Gm Vial) 2 gm IV Q12H [facility]; Protocol Last Admin: 06/16/21 08:51 Dose: 2 gm Documented by: Dextrose (Dextrose 50% 50 Ml Vial) 0 ml IV UD PRN PRN Reason: Per Sliding Scale Diagnostic Test (Pha) (Accu-Chek 1 Each Strip) 1 each FS ACHS [facility] Last Admin: 06/16/21 11:12 Dose: 1 each Documented by: Docusate Sodium (Docusate Sodium 100 Mg Capsule) 100 mg PO BID [facility] Last Admin: 06/16/21 08:50 Dose: 100 mg Documented by: Glucose (Dextrose 31 Gm Oral.Susp) 15 gm PO PRN PRN PRN Reason: Hypoglycemia Heparin Sodium (Porcine) (Heparin 5,000 Unit/Ml Vial) 5,000 unit SQ Q12 [facility] Last Admin: 06/16/21 08:51 Dose: 5,000 unit Documented by: Heparin Sodium (Porcine) (Heparin Flush 10 Units/Ml 5 Ml Syringe) 2 ml IV Q12 [facility] Hydromorphone HCl (Hydromorphone 0.5 Mg/0.5 Ml Syringe) 0.5 mg IV Q2HP PRN; Protocol PRN Reason: Per Pain Protocol Last Admin: 06/15/21 11:36 Dose: 0.5 mg Documented by: Metronidazole 500 mg/ Premix 100 mls @ 100 mls/hr IV Q8H [facility]; Protocol Last Infusion: 06/16/21 07:11 Dose: Infused Documented by: Vancomycin HCl 1,500 mg/ (Sodium Chloride) 500 mls @ 333.3 mls/hr IV Q24H [facility] Last Infusion: 06/16/21 12:48 Dose: Infused Documented by: Insulin Glargine (Insulin Glargine, Human 1 Unit/0.01 Ml) 10 unit SQ [facility] Last Admin: 06/15/21 21:58 Dose: 10 unit Documented by: Insulin Human Lispro (Insulin Lispro 1 Unit/0.01 Ml Unit) 0 unit SQ [facility]; Protocol Last Admin: 06/16/21 11:13 Dose: 6 units Documented by: Insulin Human Lispro (Insulin Lispro 1 Unit/0.01 Ml Unit) 3 unit SQ [facility] Last Admin: 06/16/21 11:13 Dose: 3 units Documented by: Memantine (Memantine 10 Mg Tablet) 5 mg PO DAILY [facility] Last Admin: 06/16/21 08:49 Dose: 5 mg Documented by: Mupirocin (Mupirocin Oint 2% 22gm) 1 dose TOPICAL BID [facility] Last Admin: 06/16/21 08:51 Dose: 1 dose Documented by: Ondansetron HCl (Ondansetron 4 Mg/2 Ml Vial) 4 mg IV Q6HP PRN PRN Reason: Nausea And Vomiting Pregabalin (Pregabalin 25 Mg Capsule) 50 mg PO QDAY [facility] Last Admin: 06/16/21 08:50 Dose: 50 mg Documented by: Senna (Sennosides 1 Tablet) 2 tab PO [facility] Last Admin: 06/15/21 21:52 Dose: Not Given Documented by: Sodium Chloride (0.9 % Sodium Chloride 10 Ml Syringe) 10 ml IV Q8 [facility] Last Admin: 06/16/21 05:42 Dose: 10 ml Documented by: Sodium Chloride (0.9 % Sodium Chloride 10 Ml Syringe) 10 ml IV UD PRN PRN Reason: FLUSH Sodium Chloride (0.9 % Sodium Chloride 10 Ml Syringe) 10 ml IV Q12 [facility] Vancomycin HCl (Vancomycin Per Pharmacy) 1 order IV UD [facility]; Protocol A/P Narrative A/P Narrative: Assessment: 75-year-old male with a history of type 2 diabetes mellitus and chronic kidney disease stage III who stepped on a nail in late April has been struggling with a foot infection ever since referred to the emergency department for further evaluation of possible osteomyelitis. In the emergency department, the patient had an x-ray of his left foot that showed moderate osteolysis of the first MTP with severe joint space narrowing highly suspicious for septic arthritis and adjacent osteomyelitis. #Diabetic foot infection #Osteomyelitis of first MTP periarticular region #Probable septic arthritis of first MTP joint #Type 2 diabetes mellitus -Hemoglobin A1c was 10.4 #Chronic kidney disease stage III Plan -Vancomycin, cefepime, metronidazole for now. -Surgical cultures obtained prior to admission-the patient was on doxycycline and ciprofloxacin prior to admission. -Follow blood cultures. -De-escalate antibiotics based on culture results. -PICC line. -Lantus 10 units at bedtime, Humalog 5 units AC at bedtime, correction Humalog SSI-medium. -Continue aspirin, atorvastatin, Lyrica, Namenda. -Holding home empagliflozin until diabetic wound heels- studies have shown an increased risk of lower limb amputation. -Analgesics as needed -Monitor renal function periodically. -Wound care surgery consult: Dr. Phipps. -Consistent carbohydrate diet. -DVT prophylaxis: Heparin SQ -CODE STATUS: Full -Disposition: Probably home on IV antibiotics via PICC line with home antibiotic infusions versus antibiotics at the infusion center, less likely SNF. Treatment course will be 6 weeks of IV antibiotics possibly followed by oral suppressive antibiotic therapy. May need to discharge on insulin regimen for diabetes mellitus as hemoglobin A1c was 10.4. Time Spent With Patient Time: Total time spent is greater than 50% in coordination of care (as documented) at patient's floor/unit and/or counseling patient: QUALITY VTE Deep Vein Thrombosis/Pulmonary Embolism Present on Admission: No
--- NOTE | 2021-06-16 13:59 | General Surgery Progress Note ---
SUBJECTIVE Subjective Patient information: Note initiated : 06/16/21 at 1:55 pm Service Date, if different from initiated Date: [] Patient: Garth Chavez 75 y/o M admitted on 06/14/21 for Left Foot Wound. Chief Complaint: [] Additional PMFSH (Level 3 Only): Doing better, DENIES any symptoms. Constitutional Vitals: Vital Signs Temp Pulse Resp BP Pulse Ox 97.6 F 69 22 129/74 94 06/16/21 11:26 06/16/21 11:26 06/16/21 11:26 06/16/21 11:26 06/16/21 11:26 Period Temp Pulse Resp BP Sys/Barry Pulse Ox Last 24 Hr 97.3 F-99.3 F 59-69 18- 126-138/70-82 93-94 Intake and Output 06/15/21 06/16/21 06/16/21 21:59 05:59 13:59 Intake Total 100 100 600 Balance 100 100 600 Weight 183 lb 12.8 oz Intake & Output: Intake & Output 06/15/21 06/16/21 06/16/21 21:59 05:59 13:59 Intake Total 100 100 600 Balance 100 100 600 Weight 183 lb 12.8 oz Intake: IV 100 100 600 Vancomycin 1,500 mg In Sodium 500 Chloride 0.9% 500 ml @ 333.3 mls/hr IV Q24H [facility] Rx#: [id number] Flagyl 500 mg In Premix 1 Bag @ 100 100 100 100 mls/hr IV Q8H [facility] Rx#: [id number] Other: Meal Lunch Percent of Meal Consumed 100% Feeding Ability Independent # Voids 3 Exam: AVSS. Unremarkable SARAH. LEFT foot resolving inflammatory changes. Wound cultures pending. Will check CRP A1c, Prealbumin, TSH in AM A/P Narrative A/P Narrative: Assessment: Satisfactory progress. Anticipate D/C planning after weekend Plan: Labs for AM Continue current management. . Time Spent With Patient Time: Total time spent is greater than 50% in coordination of care (as documented) at patient's floor/unit and/or counseling patient: Total time spent with greater than 50% in coordination of care (as documented) at patient's floor/unit and/or counseling patient:: 15 - 24 minutes
--- NOTE | 2021-06-16 15:39 | XRay Report ---
CLINICAL INFORMATION: PICC line placement COMPARISON: None. TECHNIQUE: Portable FINDINGS: Right PICC line tip overlies the SVC right atrial junction. The heart size, mediastinum and pulmonary vessels are unremarkable. The lungs are clear. There are no effusions. The bones and soft tissues are within normal limits. IMPRESSION: PICC line in satisfactory position. No cardiopulmonary disease evident Interpreted and Authenticated by: Stephane Farrell 06/16/21
[2021-06-16] MEDS: ATORVASTATIN 40 MG TABLET PO SCH (21:11)
[2021-06-16] MEDS: SENNOSIDES 1 TABLET PO SCH (21:12)
[2021-06-16] MEDS: INSULIN GLARGINE, HUMAN 1 UNIT/0.01 ML SQ SCH (21:20)
[2021-06-17] MEDS: metroNIDAZOLE 500 MG in PREMIX 1 BAG IV SCH ×3 (05:56→21:29)
[2021-06-17] MEDS: 0.9 % SODIUM CHLORIDE 10 ML SYRINGE IV SCH ×5 (05:57→21:29)
[2021-06-17 07:03] LABS: Prealbumin 19.3 mg/dL (20.0-40.0)
[2021-06-17] MEDS: INSULIN LISPRO 1 UNIT/0.01 ML UNIT SQ SCH ×7 (07:03→21:28)
[2021-06-17] MEDS: HYDROcodone/APAP 5/325MG TABLET PO PRN (07:12)
[2021-06-17 07:16] LABS: Thyroid Stimulating Hormone 5.91 uIU/mL (0.27-5.01)
[2021-06-17 07:58] LABS: Estimated Average Glucose(eAG) 246 mg/dL; Hemoglobin A1C 10.2 % Hgb (4.0-6.0)
[2021-06-17] MEDS: HEPARIN 5,000 UNIT/ML VIAL SQ SCH ×2 (08:16→21:27)
[2021-06-17] MEDS: PREGABALIN 25 MG CAPSULE PO SCH (08:16)
[2021-06-17] MEDS: DOCUSATE SODIUM 100 MG CAPSULE PO SCH ×2 (08:16→21:28)
[2021-06-17] MEDS: ASPIRIN 81 MG TAB.CHEW PO SCH (08:16)
[2021-06-17] MEDS: MEMANTINE 10 MG TABLET PO SCH (08:17)
[2021-06-17] MEDS: CEFEPIME 2 GM VIAL IV SCH ×2 (08:27→21:26)
[2021-06-17] MEDS: MUPIROCIN OINT 2% 22GM TOPICAL SCH ×2 (08:27→21:27)
--- NOTE | 2021-06-17 10:41 | Internal Med Progress Note ---
SUBJECTIVE Subjective Patient information: Note initiated : 06/17/21 at 10:36 am Service Date, if different from initiated Date: [] Patient: Garth Chavez 75 y/o M admitted on 06/14/21 for Left Foot Wound. Chief Complaint: [] Interval history: Mr. Chavez is a 75 year old male with a history of type 2 diabetes mellitus, chronic kidney disease stage III who was sent to the emergency department by wound care due to concern of osteomyelitis involving his right foot. In late April the patient stepped on a nail that went through his shoe and he has been struggling with an infection in his right foot ever since. The patient has been on antibiotic treatment with doxycycline and ciprofloxacin. The wound infection initially improved however he later developed redness over his foot. The patient was seen by his primary care provider and a couple times in the emergency department for this issue. He was referred to see Dr. Templeton in [facility] who after evaluating the foot and obtaining deep cultures referred the patient to the emergency department for hospital admission, IV antibiotics and further management. In the ED the patient was afebrile, no leukocytosis however inflammatory markers are elevated. Patient's renal function is at his baseline. 06/15 Stable overnight, blood cultures showing no growth to date. Continues on va ncomycin, cefepime, metronidazole IV, awaiting surgical culture results. 06/16 No events overnight. Feels much better, pain well controlled. Blood cultures showing no growth, PICC line ordered. Continues on broad spectrum IV antibiotics, surgical cultures pending. Increased prandial Humalog to 5 units AC. 06/17 No events overnight, the patient is doing well overall but continues on broad-spectrum antibiotics. Discussed with Dr. Templeton, he said that the surgical cultures which were obtained in clinic prior to admission are still pending. Anticipate discharge to home in 1 to 2 days when culture results are available for targeted antibiotic therapy. Physical exam Head: Atraumatic, normal inspection. Eyes: normal appearance, no scleral icterus. Neck: full ROM Respiratory: no respiratory distress. Cardiovascular: normal rate and rhythm, S1, S2. GI/Abdominal: soft, nontender, no guarding. Extremities: Left foot edema over first MTP joint. Neurological: CN II-XII intact, intact motor, intact sensation. Psychiatric: normal mood. Skin: Warmth, redness over first MTP P joint consistent with cellulitis. Constitutional Vitals: Vital Signs Temp Pulse Resp BP Pulse Ox 98.2 F 62 18 120/70 94 06/17/21 07:31 06/17/21 07:31 06/17/21 07:31 06/17/21 07:31 06/17/21 07:31 Period Temp Pulse Resp BP Sys/Barry Pulse Ox Last 24 Hr 97.6 F-98.7 F 62-74 18-22 120-136/68-84 94-95 Intake and Output 06/16/21 06/17/21 06/17/21 20:59 05:59 13:59 Intake Total 340 Output Total Balance 340 Weight Intake & Output: Intake & Output 06/16/21 06/17/21 06/17/21 20:59 05:59 13:59 Intake Total 340 Output Total Balance 340 Weight Intake: IV 100 Flagyl 500 mg In Premix 1 Bag @ 100 100 mls/hr IV Q8H [facility] Rx#: [id number] Oral 240 Output: Void Amount Other: Meal Breakfast Percent of Meal Consumed 80 Feeding Ability Independent Urine Appearance Urine Color Urine Odor OBJ DATA Labs CBC & Chem 7: 06/14/21 10:12 06/16/21 06:07 Labs: Abnormal Lab Results 06/17/21 06/16/21 06/15/21 05:28 06:07 05:46 RDW MPV [place] % (Auto) Lymph # (Auto) [place] # (Auto) ESR POC BUN BUN 32 H 35 H Creatinine 1.3 H 1.4 H POC Creatinine Glucose 136 H 169 H POC Glucose Hemoglobin A1c 10.2 H POC WB Ioniz Calcium GGT C-Reactive Protein 1.50 H Albumin 3.0 L Globulin Albumin/Globulin Ratio 0.9 L 0.8 L Prealbumin 19.3 L Triglycerides 173 H TSH 5.91 H 06/14/21 06/14/21 06/14/21 16:31 10:12 10:12 RDW 14.7 H MPV 10.5 H [place] % (Auto) 14.1 H Lymph # (Auto) 1.19 L [place] # (Auto) 1.05 H ESR 66 H POC BUN 42 H BUN 30 H Creatinine 1.3 H POC Creatinine 1.4 H Glucose 141 H POC Glucose 251 H Hemoglobin A1c 10.4 H POC WB Ioniz Calcium 1.15 L GGT 71 H C-Reactive Protein 5.60 H Albumin Globulin 4.0 H Albumin/Globulin Ratio 0.8 L Prealbumin Triglycerides TSH Meds: Medications Acetaminophen (Acetaminophen 325 Mg Tablet) 650 mg PO Q6HP PRN; Protocol PRN Reason: Per Pain Protocol/Fever > 101 Hydrocodone Bitart/Acetaminophen (Hydrocodone/Apap 5/325mg Tablet) 1 tab PO Q4HP PRN; Protocol PRN Reason: Per Pain Protocol Last Admin: 06/17/21 07:12 Dose: 1 tab Documented by: Aspirin (Aspirin 81 Mg Tab.Chew) 81 mg PO DAILY [facility] Last Admin: 06/17/21 08:16 Dose: 81 mg Documented by: Atorvastatin Calcium (Atorvastatin 40 Mg Tablet) 80 mg PO HS [facility] Last Admin: 06/16/21 21:11 Dose: 80 mg Documented by: Cefepime HCl (Cefepime 2 Gm Vial) 2 gm IV Q12H [facility]; Protocol Last Admin: 06/17/21 08:27 Dose: 2 gm Documented by: Dextrose (Dextrose 50% 50 Ml Vial) 0 ml IV UD PRN PRN Reason: Per Sliding Scale Diagnostic Test (Pha) (Accu-Chek 1 Each Strip) 1 each FS ACHS [facility] Last Admin: 06/17/21 07:02 Dose: 1 each Documented by: Docusate Sodium (Docusate Sodium 100 Mg Capsule) 100 mg PO BID [facility] Last Admin: 06/17/21 08:16 Dose: 100 mg Documented by: Glucose (Dextrose 31 Gm Oral.Susp) 15 gm PO PRN PRN PRN Reason: Hypoglycemia Heparin Sodium (Porcine) (Heparin 5,000 Unit/Ml Vial) 5,000 unit SQ Q12 [facility] Last Admin: 06/17/21 08:16 Dose: 5,000 unit Documented by: Heparin Sodium (Porcine) (Heparin Flush 10 Units/Ml 5 Ml Syringe) 2 ml IV Q12 [facility] Last Admin: 06/17/21 08:27 Dose: 2 ml Documented by: Hydromorphone HCl (Hydromorphone 0.5 Mg/0.5 Ml Syringe) 0.5 mg IV Q2HP PRN; Protocol PRN Reason: Per Pain Protocol Last Admin: 06/15/21 11:36 Dose: 0.5 mg Documented by: Metronidazole 500 mg/ Premix 100 mls @ 100 mls/hr IV Q8H [facility]; Protocol Last Infusion: 06/17/21 07:14 Dose: Infused Documented by: Vancomycin HCl 1,500 mg/ (Sodium Chloride) 500 mls @ 333.3 mls/hr IV Q24H [facility] Last Infusion: 06/16/21 12:48 Dose: Infused Documented by: Insulin Glargine (Insulin Glargine, Human 1 Unit/0.01 Ml) 10 unit SQ [facility] Last Admin: 06/16/21 21:20 Dose: 10 unit Documented by: Insulin Human Lispro (Insulin Lispro 1 Unit/0.01 Ml Unit) 0 unit SQ [facility]; Protocol Last Admin: 06/17/21 07:03 Dose: Not Given Documented by: Insulin Human Lispro (Insulin Lispro 1 Unit/0.01 Ml Unit) 5 unit SQ AC [facility] Last Admin: 06/17/21 07:12 Dose: 5 units Documented by: Memantine (Memantine 10 Mg Tablet) 5 mg PO DAILY [facility] Last Admin: 06/17/21 08:17 Dose: 5 mg Documented by: Mupirocin (Mupirocin Oint 2% 22gm) 1 dose TOPICAL BID [facility] Last Admin: 06/17/21 08:27 Dose: 1 dose Documented by: Ondansetron HCl (Ondansetron 4 Mg/2 Ml Vial) 4 mg IV Q6HP PRN PRN Reason: Nausea And Vomiting Pregabalin (Pregabalin 25 Mg Capsule) 50 mg PO QDAY [facility] Last Admin: 06/17/21 08:16 Dose: 50 mg Documented by: Senna (Sennosides 1 Tablet) 2 tab PO [facility] Last Admin: 06/16/21 21:12 Dose: Not Given Documented by: Sodium Chloride (0.9 % Sodium Chloride 10 Ml Syringe) 10 ml IV Q8 [facility] Last Admin: 06/17/21 05:57 Dose: 10 ml Documented by: Sodium Chloride (0.9 % Sodium Chloride 10 Ml Syringe) 10 ml IV UD PRN PRN Reason: FLUSH Sodium Chloride (0.9 % Sodium Chloride 10 Ml Syringe) 10 ml IV Q12 [facility] Last Admin: 06/17/21 08:36 Dose: 10 ml Documented by: Vancomycin HCl (Vancomycin Per Pharmacy) 1 order IV UD [facility]; Protocol A/P Narrative A/P Narrative: Assessment: 75-year-old male with a history of type 2 diabetes mellitus and chronic kidney disease stage III who stepped on a nail in late April has been struggling with a foot infection ever since referred to the emergency department for further evaluation of possible osteomyelitis. In the emergency department, the patient had an x-ray of his left foot that showed moderate osteolysis of the first MTP with severe joint space narrowing highly suspicious for septic ar thritis and adjacent osteomyelitis. #Diabetic foot infection #Osteomyelitis of first MTP periarticular region #Probable septic arthritis of first MTP joint #Type 2 diabetes mellitus -Hemoglobin A1c was 10.4 #Chronic kidney disease stage III Plan -Vancomycin, cefepime, metronidazole for now. -Surgical cultures obtained prior to admission-note that the patient was on doxycycline and ciprofloxacin prior to admission. -Follow blood cultures-NGTD. -De-escalate antibiotics based on culture results. -PICC line placed in right upper extremity.. -Lantus 10 units at bedtime, Humalog 5 units AC at bedtime, correction Humalog SSI-medium. -Continue aspirin, atorvastatin, Lyrica, Namenda. -Holding home empagliflozin until diabetic wound heels- studies have shown an increased risk of lower limb amputation. -Analgesics as needed -Monitor renal function periodically. -Dr. Sharpe following. -Consistent carbohydrate diet. -DVT prophylaxis: Heparin SQ -CODE STATUS: Full -Disposition: Probably home on IV antibiotics via PICC line with home antibiotic infusions versus antibiotics at the infusion center. Treatment course will be 6 weeks of IV antibiotics possibly followed by oral suppressive antibiotic therapy. May consider referral to ID in [place] or [place] for further management. May need to be discharged on a basal/bolus insulin regimen in the near term for optimal wound outcome of the foot infection as hemoglobin A1c was 10.4. Time Spent With Patient Time: Total time spent is greater than 50% in coordination of care (as documented) at patient's floor/unit and/or counseling patient: QUALITY VTE Deep Vein Thrombosis/Pulmonary Embolism Present on Admission: No
[2021-06-17] MEDS: VANCOMYCIN 1,500 MG in 0.9 % SODIUM CHLORIDE 500 ML IV SCH (10:54)
--- NOTE | 2021-06-17 13:35 | Internal Med Progress Note ---
SUBJECTIVE Subjective Patient information: Note initiated : 06/17/21 at 1:30 pm Service Date, if different from initiated Date: [] Patient: Garth Chavez 75 y/o M admitted on 06/14/21 for Left Foot Wound. Chief Complaint: [] Interval history: Mr. Chavez is a 75 year old male with a history of type 2 diabetes mellitus, chronic kidney disease stage III who was sent to the emergency department by wound care due to concern of osteomyelitis involving his right foot. In late April the patient stepped on a nail that went through his shoe and he has been struggling with an infection in his right foot ever since. The patient has been on antibiotic treatment with doxycycline and ciprofloxacin. The wound infection initially improved however he later developed redness over his foot. The patient was seen by his primary care provider and a couple times in the emergency department for this issue. He was referred to see Dr. Templeton in [facility] who after evaluating the foot and obtaining deep cultures referred the patient to the emergency department for hospital admission, IV antibiotics and further management. In the ED the patient was afebrile, no leukocytosis however inflammatory markers are elevated. Patient's renal function is at his baseline. 06/15 Stable overnight, blood cultures showing no growth to date. Continues on van comycin, cefepime, metronidazole IV, awaiting surgical culture results. 06/16 No events overnight. Feels much better, pain well controlled. Blood cultures showing no growth, PICC line ordered. Continues on broad spectrum IV antibiotics, surgical cultures pending. Increased prandial Humalog to 5 units AC. 06/17 No events overnight, the patient is doing well overall but continues on broad-spectrum antibiotics. Discussed with Dr. Templeton, he said that the surgical cultures which were obtained in clinic prior to admission are still pending. Anticipate discharge to home in 1 to 2 days when culture results are available for targeted antibiotic therapy. 06/18 Constitutional Vitals: Vital Signs Temp Pulse Resp BP Pulse Ox 97.1 F 66 16 121/74 93 06/17/21 11:06 06/17/21 11:06 06/17/21 11:06 06/17/21 11:06 06/17/21 11:06 Period Temp Pulse Resp BP Sys/Barry Pulse Ox Last 24 Hr 97.1 F-98.7 F 62-74 16-18 120-136/68-84 93-95 Intake and Output 06/16/21 06/17/21 06/17/21 20:59 05:59 13:59 Intake Total 820 Output Total Balance 820 Weight Intake & Output: Intake & Output 06/16/21 06/17/21 06/17/21 20:59 05:59 13:59 Intake Total 820 Output Total Balance 820 Weight Intake: IV 100 Flagyl 500 mg In Premix 1 Bag @ 100 100 mls/hr IV Q8H [facility] Rx#: [id number] Oral 720 Output: Void Amount Other: Meal Lunch Percent of Meal Consumed 100% Feeding Ability Independent Urine Appearance Urine Color Urine Odor Exam: General: Alert, Awake, No acute Distress Eyes/N/T: EOMI, Head/Neck: neck supple, CV: RRR, No murmurs, Pulm: Clear b/l, no wheezing/rhonchi/rales Abd: soft, nontender, +BS x4 Ext: no clubbing/cyanosis. Left foot edema over first MTP jint Neuro: Alert, no focal deficits, moves all extremities, Skin: warm/dry OBJ DATA Labs CBC & Chem 7: 06/14/21 10:12 06/16/21 06:07 Labs: Abnormal Lab Results 06/17/21 06/16/21 06/15/21 05:28 06:07 05:46 BUN 32 H 35 H Creatinine 1.3 H 1.4 H Glucose 136 H 169 H Hemoglobin A1c 10.2 H GGT C-Reactive Protein 1.50 H Albumin 3.0 L Globulin Albumin/Globulin Ratio 0.9 L 0.8 L Prealbumin 19.3 L Triglycerides 173 H TSH 5.91 H 06/14/21 16:31 BUN 30 H Creatinine 1.3 H Glucose 141 H Hemoglobin A1c 10.4 H GGT 71 H C-Reactive Protein Albumin Globulin 4.0 H Albumin/Globulin Ratio 0.8 L Prealbumin Triglycerides TSH Meds: Medications Acetaminophen (Acetaminophen 325 Mg Tablet) 650 mg PO Q6HP PRN; Protocol PRN Reason: Per Pain Protocol/Fever > 101 Hydrocodone Bitart/Acetaminophen (Hydrocodone/Apap 5/325mg Tablet) 1 tab PO Q4HP PRN; Protocol PRN Reason: Per Pain Protocol Last Admin: 06/17/21 07:12 Dose: 1 tab Documented by: Aspirin (Aspirin 81 Mg Tab.Chew) 81 mg PO DAILY [facility] Last Admin: 06/17/21 08:16 Dose: 81 mg Documented by: Atorvastatin Calcium (Atorvastatin 40 Mg Tablet) 80 mg PO HS [facility] Last Admin: 06/16/21 21:11 Dose: 80 mg Documented by: Cefepime HCl (Cefepime 2 Gm Vial) 2 gm IV Q12H [facility]; Protocol Last Admin: 06/17/21 08:27 Dose: 2 gm Documented by: Dextrose (Dextrose 50% 50 Ml Vial) 0 ml IV UD PRN PRN Reason: Per Sliding Scale Diagnostic Test (Pha) (Accu-Chek 1 Each Strip) 1 each FS ACHS [facility] Last Admin: 06/17/21 11:00 Dose: 1 each Documented by: Docusate Sodium (Docusate Sodium 100 Mg Capsule) 100 mg PO BID [facility] Last Admin: 06/17/21 08:16 Dose: 100 mg Documented by: Glucose (Dextrose 31 Gm Oral.Susp) 15 gm PO PRN PRN PRN Reason: Hypoglycemia Heparin Sodium (Porcine) (Heparin 5,000 Unit/Ml Vial) 5,000 unit SQ Q12 [facility] Last Admin: 06/17/21 08:16 Dose: 5,000 unit Documented by: Heparin Sodium (Porcine) (Heparin Flush 10 Units/Ml 5 Ml Syringe) 2 ml IV Q12 [facility] Last Admin: 06/17/21 08:27 Dose: 2 ml Documented by: Hydromorphone HCl (Hydromorphone 0.5 Mg/0.5 Ml Syringe) 0.5 mg IV Q2HP PRN; Protocol PRN Reason: Per Pain Protocol Last Admin: 06/15/21 11:36 Dose: 0.5 mg Documented by: Metronidazole 500 mg/ Premix 100 mls @ 100 mls/hr IV Q8H [facility]; Protocol Last Infusion: 06/17/21 07:14 Dose: Infused Documented by: Vancomycin HCl 1,500 mg/ (Sodium Chloride) 500 mls @ 333.3 mls/hr IV Q24H [facility] Last Admin: 06/17/21 10:54 Dose: 333 mls/hr Documented by: Insulin Glargine (Insulin Glargine, Human 1 Unit/0.01 Ml) 10 unit SQ [facility] Last Admin: 06/16/21 21:20 Dose: 10 unit Documented by: Insulin Human Lispro (Insulin Lispro 1 Unit/0.01 Ml Unit) 0 unit SQ ACHS [facility]; Protocol Last Admin: 06/17/21 11:59 Dose: 4 units Documented by: Insulin Human Lispro (Insulin Lispro 1 Unit/0.01 Ml Unit) 5 unit SQ AC [facility] Last Admin: 06/17/21 11:59 Dose: 5 units Documented by: Memantine (Memantine 10 Mg Tablet) 5 mg PO DAILY [facility] Last Admin: 06/17/21 08:17 Dose: 5 mg Documented by: Mupirocin (Mupirocin Oint 2% 22gm) 1 dose TOPICAL BID [facility] Last Admin: 06/17/21 08:27 Dose: 1 dose Documented by: Ondansetron HCl (Ondansetron 4 Mg/2 Ml Vial) 4 mg IV Q6HP PRN PRN Reason: Nausea And Vomiting Pregabalin (Pregabalin 25 Mg Capsule) 50 mg PO QDAY [facility] Last Admin: 06/17/21 08:16 Dose: 50 mg Documented by: Senna (Sennosides 1 Tablet) 2 tab PO HS [facility] Last Admin: 06/16/21 21:12 Dose: Not Given Documented by: Sodium Chloride (0.9 % Sodium Chloride 10 Ml Syringe) 10 ml IV Q8 [facility] Last Admin: 06/17/21 05:57 Dose: 10 ml Documented by: Sodium Chloride (0.9 % Sodium Chloride 10 Ml Syringe) 10 ml IV UD PRN PRN Reason: FLUSH Sodium Chloride (0.9 % Sodium Chloride 10 Ml Syringe) 10 ml IV Q12 [facility] Last Admin: 06/17/21 08:36 Dose: 10 ml Documented by: Vancomycin HCl (Vancomycin Per Pharmacy) 1 order IV UD [facility]; Protocol A/P Narrative A/P Narrative: A: #Diabetic foot infection: #Osteomyelitis of first MTP periarticular region: #Probable septic arthritis of first MTP joint: #DM Type 2: A1c 10.4 #CKD III: Plan: -Vancomycin, cefepime, metronidazole for now, d/c on IV abx to f/u with wound care -Surgical cultures obtained prior to admission-note that the patient was on doxycycline and ciprofloxacin prior to admission. -Follow blood cultures-NGTD. -PICC line place -Lantus 10 qhs, Humalog 5 ACHS, SSI -Continue aspirin/atorvastatin, Lyrica/Namenda. -Holding home empagliflozin until diabetic wound heels- studies have shown an increased risk of lower limb amputation. -Dr. Sharpe following -prophylaxis: Heparin SQ CODE STATUS: Full Disposition: Probably home on IV antibiotics via PICC line with home antibiotic infusions versus antibiotics at the infusion center. Treatment course will be 6 weeks of IV antibiotics possibly followed by oral suppressive antibiotic therapy. May consider referral to ID in [place] or [place] for further management. May need to be discharged on a basal/bolus insulin regimen in the near term for optimal wound outcome of the foot infection as hemoglobin A1c was 10.4. Time Spent With Patient Time: Total time spent is greater than 50% in coordination of care (as documented) at patient's floor/unit and/or counseling patient: QUALITY VTE Deep Vein Thrombosis/Pulmonary Embolism Present on Admission: No
--- NOTE | 2021-06-17 13:37 | Discharge Summary ---
Discharge Provider Provider Patient information: Note initiated : 06/17/21 at 1:35 pm Service Date, if different from initiated Date: [] Patient: Garth Chavez 75 y/o M admitted on 06/14/21 for Left Foot Wound. Chief Complaint: [] Date of admission: 06/14/21 15:51 Discharge date: 06/18/21 Primary care physician: Tim Mata Consults: 06/14/21 Consult to Physician [CONS] Stat Comment: Consulting Provider: Gustabo Roberson Reason For Exam: Physician to Consult Consult to Physician [CONS] Stat Comment: Consulting Provider: Oliver Payne Reason For Exam: Physician to Consult 06/14/21 16:17 Consult to Physician [CONS] Stat Comment: Consulting Provider: Gustabo Roberson Reason For Exam: Physician to Consult Discharge Meds Discharge Medications Home Medications aspirin 325 mg capsule 325 mg PO DAILY 06/14/21 [History Confirmed 06/14/21 Last Taken Unknown] atorvastatin 80 mg tablet 80 mg PO QDAY 06/14/21 [History Confirmed 06/14/21 Last Taken Unknown] cholecalciferol (vitamin D3) 50 mcg (2,000 unit) capsule (Vitamin D3) 50 mcg PO QDAY 06/14/21 [History Confirmed 06/14/21 Last Taken Unknown] lisinopril 10 mg tablet 10 mg PO QDAY 06/14/21 [History Confirmed 06/14/21 Last Taken Unknown] memantine 5 mg tablet 5 mg PO QAM 06/14/21 [History Confirmed 06/14/21 Last Taken Unknown] omega-3 fatty acids-vitamin E 1,000 mg capsule 1 cap PO BID 06/14/21 [History Confirmed 06/14/21 Last Taken Unknown] pregabalin 50 mg capsule 50 mg PO QDAY 06/14/21 [History Confirmed 06/14/21 Last Taken Unknown] spironolactone 25 mg tablet 25 mg PO QDAY 06/14/21 [History Confirmed 06/14/21 Last Taken Unknown] blood sugar diagnostic #100 each 06/17/21 [Rx Last Taken Unknown] ceftriaxone 2 gram intravenous solution 1 g IV Q24H #1 ea 06/17/21 [Rx Last Taken Unknown] insulin aspart U-100 100 unit/mL (3 mL) subcutaneous pen (Novolog Flexpen U-100 Insulin aspart) See Protocol SUBCUT ACHS #3 ml MDD 40 06/17/21 [Rx Last Taken Unknown] lancets #100 each 06/17/21 [Rx Last Taken Unknown] insulin aspart U-100 100 unit/mL (3 mL) subcutaneous pen (Novolog Flexpen U-100 Insulin aspart) 5 unit (0.05 mL) SUBCUT TID #3 ml 06/18/21 [Rx Last Taken Unknown] insulin glargine 100 unit/mL subcutaneous solution (Lantus U-100 Insulin) 10 unit (0.1 mL) SUBCUT QHS #10 ml 06/18/21 [Rx Last Taken Unknown] COURSE Hospital Course Hospital course: Interval history: Mr. Chavez is a 75 year old male with a history of type 2 diabetes mellitus, chronic kidney disease stage III who was sent to the emergency department by wound care due to concern of osteomyelitis involving his right foot. In late April the patient stepped on a nail that went through his shoe and he has been struggling with an infection in his right foot ever since. The patient has been on antibiotic treatment with doxycycline and ciprofloxacin. The wound infection initially improved however he later developed redness over his foot. The patient was seen by his primary care provider and a couple times in the emergency department for this issue. He was referred to see Dr. Templeton in clinic who after evaluating the foot and obtaining deep cultures referred the patient to the emergency department for hospital admission, IV antibiotics and further management. In the ED the patient was afebrile, no leukocytosis however inflammatory markers are elevated. Patient's renal function is at his baseline. 06/15 Stable overnight, blood cultures showing no growth to date. Continues on vancomycin, cefepime, metronidazole IV, awaiting surgical culture results. 06/16 No events overnight. Feels much better, pain well controlled. Blood cultures showing no growth, PICC line ordered. Continues on broad spectrum IV antibiotics, surgical cultures pending. Increased prandial Humalog to 5 units AC. 06/17 No events overnight, the patient is doing well overall but continues on broad- spectrum antibiotics. Discussed with Dr. Templeton, he said that the surgical cultures which were obtained in clinic prior to admission are still pending. Anticipate discharge to home in 1 to 2 days when culture results are available for targeted antibiotic therapy. 06/18 Patient feeling well. No overnight event or new complaints. Will finalize antibiotic regimen with Dr. Roberson -since patient will go home with home health and so we will do Rocephin once a day 2g. A: #Diabetic foot infection: #Osteomyelitis of first MTP periarticular region: #Probable septic arthritis of first MTP joint: #DM Type 2: A1c 10.4 #CKD III: Plan: -PICC line placed -Lantus 10 qhs, Humalog 5 ACHS, SSI -Holding home empagliflozin until diabetic wound heels- studies have shown an increased risk of lower limb amputation. Disposition: Probably home on IV antibiotics via PICC line with home antibiotic infusions versus antibiotics at the infusion center. Treatment course will be 6 weeks of IV antibiotics possibly followed by oral suppressive antibiotic therapy. May consider referral to ID in [place] or [place] for further management. May need to be discharged on a basal/bolus insulin regimen in the near term for optimal wound outcome of the foot infection as hemoglobin A1c was 10.4. Discharge diagnosis: Diabetic foot wound, osteomyelitis of first MTP Secondary discharge diagnosis: Diabetes chronic kidney disease Time Spent with Patient Time attestation: Total time spent providing and/or coordinating discharge services: Time spent: Greater than 30 minutes EXAM Constitutional Vitals: Temp Pulse Resp BP Pulse Ox 97.1 F 66 16 121/74 93 06/17/21 11:06 06/17/21 11:06 06/17/21 11:06 06/17/21 11:06 06/17/21 11:06 Discharge Data Data Completed and Pending Labs on day of discharge: Labs from last 24 hours 06/17/21 06/17/21 05:28 05:28 Hemoglobin A1c 10.2 H Estim Average Glucose 246 C-Reactive Protein 1.50 H Prealbumin 19.3 L TSH 5.91 H Free T4 0.99 Preliminary micro results at discharge 06/14/21 10:53 Blood Culture - Preliminary Blood 06/14/21 10:12 Blood Culture - Preliminary Blood Discharge Plan Patient/Caregiver Discharge Instructions Activity: increase activity as tolerated Diet: Consistent Carbohydrate Activity Restrictions/Additional Instructions: PICC line care and weekly CBC/CMP until antibiotics finished on 07/26/2021. Send weekly labs to Dr. Roberson and PCP. Prescriptions: New ceftriaxone 2 gram recon soln 1 g IV Q24H Qty: 1 0RF insulin aspart U-100 [Novolog Flexpen U-100 Insulin] 100 unit/mL (3 mL) insulin pen See Protocol unit subcut ACHS MDD 40 Qty: 3 0RF Protocol: Insulin Sliding Scale, Med Condition: HUMALOG/NOVALOG SC SLIDING Dose/Route: SCALE Condition: FSBS < 70 Dose/Route: Give 4 Oz juice, or 15gm oral Instruction: Glucose, or 25ml D50W IV if Dose/Route: unable to take PO. Recheck in Instruction: 15 min and repeat if FSBS < 70 Condition: FSBS 71-140 Dose/Route: NO COVERAGE Condition: FSBS 141-170 Dose/Route: 2 UNITS Condition: FSBS 171-200 Dose/Route: 4 UNITS Condition: FSBS 201-250 Dose/Route: 6 UNITS Condition: FSBS 251-300 Dose/Route: 8 UNITS Condition: FSBS 301-350 Dose/Route: 10 UNITS Condition: FSBS 351-400 Dose/Route: 12 UNITS Condition: FSBS > 400 Dose/Route: 14 UNITS; REPEAT Q2H X2 Instruction: C ONTINUE FOLLOWING SLIDING Condition: SCALE; IF STILL > 400; CALL Dose/Route: PHYSICIAN (DME) blood sugar diagnostic Strip See Rx Instructions .ROUTE .MEDSUPPLY Qty: 100 0RF Rx Instructions: As directed (DME) lancets Misc See Rx Instructions .ROUTE .MEDSUPPLY Qty: 100 0RF Rx Instructions: As directed insulin aspart U-100 [Novolog Flexpen U-100 Insulin] 100 unit/mL (3 mL) insulin pen 5 unit subcut TID Qty: 3 0RF Continued atorvastatin 80 mg Tablet 80 mg PO QDAY 0RF spironolactone 25 mg Tablet 25 mg PO QDAY 0RF lisinopril 10 mg Tablet 10 mg PO QDAY 0RF omega-3 fatty acids-vitamin E 1,000 mg Capsule 1 cap PO BID 0RF memantine 5 mg Tablet 5 mg PO QAM 0RF pregabalin 50 mg Capsule 50 mg PO QDAY 0RF cholecalciferol (vitamin D3) [Vitamin D3] 50 mcg (2,000 unit) Capsule 50 mcg PO QDAY 0RF aspirin 325 mg Capsule 325 mg PO DAILY 0RF Changed Lantus U-100 Insulin 100 unit/mL Solution 10 unit SUBCUT QHS Qty: 10 0RF Discontinued empagliflozin 25 mg Tablet 25 mg PO QDAY 0RF Follow Up Plan Follow up with: Gustabo Roberson MD [Physician] - Tim Maat ARNP [Primary Care Provider] - Patient Disposition: Home Health Service Prognosis: Fair Overall status at discharge: patient is progressing back to baseline Discharge Orders: Discharge Order (Routine); Ordered 06/18/21 Ordered By: Neel Rod [facility] VTE Deep Vein Thrombosis/Pulmonary Embolism Present on Admission: No
[2021-06-17] MEDS: ATORVASTATIN 40 MG TABLET PO SCH (21:26)
[2021-06-17] MEDS: INSULIN GLARGINE, HUMAN 1 UNIT/0.01 ML SQ SCH (21:28)
[2021-06-17] MEDS: SENNOSIDES 1 TABLET PO SCH (21:29)
[2021-06-18] MEDS: 0.9 % SODIUM CHLORIDE 10 ML SYRINGE IV SCH ×2 (05:31→09:16)
[2021-06-18] MEDS: metroNIDAZOLE 500 MG in PREMIX 1 BAG IV SCH (05:31)
[2021-06-18 06:21] LABS: Basophils # (Auto) 0.03 K/mcL (0.00-0.30); Basophils % (Auto) 0.5 % (0.0-2.0); Eosinophils % (Auto) 3.6 % (0.0-7.0); Hematocrit 45.7 % (40.1-51.0); Hemoglobin 15.2 g/dL (13.7-17.5); Lymphocytes # (Auto) 1.68 K/mcL (1.50-4.80); Lymphocytes % (Auto) 30.7 % (15.5-49.0); Mean Cell Volume 90.9 fL (80.0-100.0); Mean Corpuscular HGB Conc 33.3 g/dL (31.0-36.0); Mean Platelet Volume 9.9 fL (7.4-10.4); Monocytes # (Auto) 0.91 K/mcL (0.10-0.90); Monocytes % (Auto) 16.6 % (1.0-12.0); Neutrophils % (Auto) 48.6 % (38.0-78.0); Platelet Count 227 K/mcL (140-440); RBC 5.03 M/mcL (4.63-6.08); Red Cell Distribution Width 14.7 % (11.5-14.5); WBC 5.5 K/mcL (4.5-11.0)
[2021-06-18 06:38] LABS: ALT/SGPT 44 U/L (<40); AST/SGOT 68 U/L (<40); Albumin 3.2 gm/dL (3.2-5.2); Alkaline Phosphatase 103 U/L (39-117); Bilirubin,Direct < 0.2 mg/dL (0-0.3); Bilirubin,Total 0.4 mg/dL (0.1-1.0); Blood Urea Nitrogen 26 mg/dL (8-23); Calcium 8.9 mg/dL (8.6-10.4); Carbon Dioxide 23 mmol/L (22-30); Chloride 106 mmol/L (96-108); Globulin 3.3 gm/dL (2.2-3.7); Glomerular Filtration Rate 59; Glucose 143 mg/dL (70-105); Lactate Dehydrogenase 196 U/L (135-225); Phosphorous 2.7 mg/dL (2.5-4.5); Triglycerides 110 mg/dL (<150); Uric Acid 6.1 mg/dL (2.5-8.0)
--- NOTE | 2021-06-18 07:25 | Internal Med Progress Note ---
SUBJECTIVE Subjective Patient information: Note initiated : 06/18/21 at 7:23 am Service Date, if different from initiated Date: [] Patient: Garth Chavez 75 y/o M admitted on 06/14/21 for Left Foot Wound. Chief Complaint: [] Interval history: Mr. Chavez is a 75 year old male with a history of type 2 diabetes mellitus, chronic kidney disease stage III who was sent to the emergency department by wound care due to concern of osteomyelitis involving his right foot. In late April the patient stepped on a nail that went through his shoe and he has been struggling with an infection in his right foot ever since. The patient has been on antibiotic treatment with doxycycline and ciprofloxacin. The wound infection initially improved however he later developed redness over his foot. The patient was seen by his primary care provider and a couple times in the emergency department for this issue. He was referred to see Dr. Templeton in [facility] who after evaluating the foot and obtaining deep cultures referred the patient to the emergency department for hospital admission, IV antibiotics and further management. In the ED the patient was afebrile, no leukocytosis however inflammatory markers are elevated. Patient's renal function is at his baseline. 06/15 Stable overnight, blood cultures showing no growth to date. Continues on van comycin, cefepime, metronidazole IV, awaiting surgical culture results. 06/16 No events overnight. Feels much better, pain well controlled. Blood cultures showing no growth, PICC line ordered. Continues on broad spectrum IV antibiotics, surgical cultures pending. Increased prandial Humalog to 5 units AC. 06/17 No events overnight, the patient is doing well overall but continues on broad-spectrum antibiotics. Discussed with Dr. Templeton, he said that the surgical cultures which were obtained in clinic prior to admission are still pending. Anticipate discharge to home in 1 to 2 days when culture results are available for targeted antibiotic therapy. 06/18 Patient feeling well. No overnight event or new complaints. Will finalize antibiotic regimen with Dr. Roberson -since patient will go home with home health and so we will do Rocephin once a day 2 g. Review of Systems: denies headache/fever/chills/nausea/vomiting/chest or abdominal pain/cough/dyspnea/diarrhea. Otherwise see above. Constitutional Vitals: Vital Signs Temp Pulse Resp BP Pulse Ox 98.7 F 59 L 14 137/79 97 06/18/21 07:04 06/18/21 07:04 06/18/21 07:04 06/18/21 07:04 06/18/21 07:04 Period Temp Pulse Resp BP Sys/Barry Pulse Ox Last 24 Hr 97.1 F-98.7 F 59-69 14-18 110-137/64-79 93-97 Intake and Output 06/17/21 06/18/21 06/18/21 21:59 05:59 13:59 Intake Total 1050 600 100 Balance 1050 600 100 Weight 83.869 kg Intake & Output: Intake & Output 06/17/21 06/18/21 06/18/21 21:59 05:59 13:59 Intake Total 1050 600 100 Balance 1050 600 100 Weight 83.869 kg Intake: IV 600 100 100 Vancomycin 1,500 mg In Sodium 500 Chloride 0.9% 500 ml @ 333.3 mls/hr IV Q24H [facility] Rx#: [id number] Flagyl 500 mg In Premix 1 Bag @ 100 100 100 100 mls/hr IV Q8H [facility] Rx#: [id number] Oral 450 500 Other: # Voids 2 3 Exam: General: Alert, Awake, No acute Distress Eyes/N/T: EOMI, Head/Neck: neck supple, CV: RRR, No murmurs, Pulm: Clear b/l, no wheezing/rhonchi/rales Abd: soft, nontender, +BS x4 Ext: no clubbing/cyanosis. Left foot in dressings. Neuro: Alert, no focal deficits, moves all extremities, Skin: warm/dry OBJ DATA Labs CBC & Chem 7: 06/18/21 05:22 06/18/21 05:22 Labs: Abnormal Lab Results 06/18/21 06/18/21 06/17/21 05:22 05:22 05:28 RDW 14.7 H Gillespie % (Auto) 16.6 H Gillespie # (Auto) 0.91 H BUN 26 H Creatinine Glucose 143 H Hemoglobin A1c 10.2 H GGT 77 H AST 68 H ALT 44 H C-Reactive Protein 1.50 H Albumin Albumin/Globulin Ratio Prealbumin 19.3 L Triglycerides TSH 5.91 H 06/16/21 06/15/21 06:07 05:46 RDW Gillespie % (Auto) Gillespie # (Auto) BUN 32 H 35 H Creatinine 1.3 H 1.4 H Glucose 136 H 169 H Hemoglobin A1c GGT AST ALT C-Reactive Protein Albumin 3.0 L Albumin/Globulin Ratio 0.9 L 0.8 L Prealbumin Triglycerides 173 H TSH Meds: Medications Acetaminophen (Acetaminophen 325 Mg Tablet) 650 mg PO Q6HP PRN; Protocol PRN Reason: Per Pain Protocol/Fever > 101 Hydrocodone Bitart/Acetaminophen (Hydrocodone/Apap 5/325mg Tablet) 1 tab PO Q4HP PRN; Protocol PRN Reason: Per Pain Protocol Last Admin: 06/17/21 07:12 Dose: 1 tab Documented by: Aspirin (Aspirin 81 Mg Tab.Chew) 81 mg PO DAILY [facility] Last Admin: 06/17/21 08:16 Dose: 81 mg Documented by: Atorvastatin Calcium (Atorvastatin 40 Mg Tablet) 80 mg PO HS [facility] Last Admin: 06/17/21 21:26 Dose: 80 mg Documented by: Cefepime HCl (Cefepime 2 Gm Vial) 2 gm IV Q12H [facility]; Protocol Last Admin: 06/17/21 21:26 Dose: 2 gm Documented by: Dextrose (Dextrose 50% 50 Ml Vial) 0 ml IV UD PRN PRN Reason: Per Sliding Scale Diagnostic Test (Pha) (Accu-Chek 1 Each Strip) 1 each FS ACHS [facility] Last Admin: 06/17/21 21:27 Dose: 1 each Documented by: Docusate Sodium (Docusate Sodium 100 Mg Capsule) 100 mg PO BID [facility] Last Admin: 06/17/21 21:28 Dose: Not Given Documented by: Glucose (Dextrose 31 Gm Oral.Susp) 15 gm PO PRN PRN PRN Reason: Hypoglycemia Heparin Sodium (Porcine) (Heparin 5,000 Unit/Ml Vial) 5,000 unit SQ Q12 [facility] Last Admin: 06/17/21 21:27 Dose: 5,000 unit Documented by: Heparin Sodium (Porcine) (Heparin Flush 10 Units/Ml 5 Ml Syringe) 2 ml IV Q12 [facility] Last Admin: 06/17/21 21:27 Dose: 2 ml Documented by: Hydromorphone HCl (Hydromorphone 0.5 Mg/0.5 Ml Syringe) 0.5 mg IV Q2HP PRN; Protocol PRN Reason: Per Pain Protocol Last Admin: 06/15/21 11:36 Dose: 0.5 mg Documented by: Metronidazole 500 mg/ Premix 100 mls @ 100 mls/hr IV Q8H [facility]; Protocol Last Infusion: 06/18/21 06:47 Dose: Infused Documented by: Vancomycin HCl 1,500 mg/ (Sodium Chloride) 500 mls @ 333.3 mls/hr IV Q24H [facility] Last Infusion: 06/17/21 14:34 Dose: Infused Documented by: Insulin Glargine (Insulin Glargine, Human 1 Unit/0.01 Ml) 10 unit SQ [facility] Last Admin: 06/17/21 21:28 Dose: 10 unit Documented by: Insulin Human Lispro (Insulin Lispro 1 Unit/0.01 Ml Unit) 0 unit SQ [facility]; Protocol Last Admin: 06/17/21 21:28 Dose: Not Given Documented by: Insulin Human Lispro (Insulin Lispro 1 Unit/0.01 Ml Unit) 5 unit SQ AC [facility] Last Admin: 06/17/21 16:55 Dose: 5 units Documented by: Memantine (Memantine 10 Mg Tablet) 5 mg PO DAILY [facility] Last Admin: 06/17/21 08:17 Dose: 5 mg Documented by: Mupirocin (Mupirocin Oint 2% 22gm) 1 dose TOPICAL BID [facility] Last Admin: 06/17/21 21:27 Dose: 1 dose Documented by: Ondansetron HCl (Ondansetron 4 Mg/2 Ml Vial) 4 mg IV Q6HP PRN PRN Reason: Nausea And Vomiting Pregabalin (Pregabalin 25 Mg Capsule) 50 mg PO QDAY [facility] Last Admin: 06/17/21 08:16 Dose: 50 mg Documented by: Senna (Sennosides 1 Tablet) 2 tab PO [facility] Last Admin: 06/17/21 21:29 Dose: Not Given Documented by: Sodium Chloride (0.9 % Sodium Chloride 10 Ml Syringe) 10 ml IV Q8 [facility] Last Admin: 06/18/21 05:31 Dose: 10 ml Documented by: Sodium Chloride (0.9 % Sodium Chloride 10 Ml Syringe) 10 ml IV UD PRN PRN Reason: FLUSH Sodium Chloride (0.9 % Sodium Chloride 10 Ml Syringe) 10 ml IV Q12 [facility] Last Admin: 06/17/21 21:29 Dose: 10 ml Documented by: Vancomycin HCl (Vancomycin Per Pharmacy) 1 order IV UD [facility]; Protocol A/P Narrative A/P Narrative: A: #Diabetic foot infection: -outpt cx streptococcus per Dr. Roberson #Osteomyelitis of first MTP periarticular region: #Probable septic arthritis of first MTP joint: #DM Type 2: A1c 10.4 #CKD III: Plan: -Vancomycin/cefepime/metronidazole - deescalate to Rocephin -PICC line place -Lantus 10 qhs, Humalog 5 ACHS, SSI -Continue aspirin/atorvastatin, Lyrica/Namenda. -Holding home empagliflozin until diabetic wound heels- studies have shown an increased risk of lower limb amputation. -Dr. Sharpe following -prophylaxis: Heparin SQ CODE STATUS: Full Disposition: Probably home on IV antibiotics via PICC line with home antibiotic infusions versus antibiotics at the infusion center. Treatment course will be 6 weeks of IV antibiotics possibly followed by oral suppressive antibiotic therapy. May consider referral to ID in [place] or [place] for further management. May need to be discharged on a basal/bolus insulin regimen in the near term for optimal wound outcome of the foot infection as hemoglobin A1c was 10.4. Time Spent With Patient Time: Total time spent is greater than 50% in coordination of care (as documented) at patient's floor/unit and/or counseling patient: [facility] VTE Deep Vein Thrombosis/Pulmonary Embolism Present on Admission: No
[2021-06-18] MEDS: INSULIN LISPRO 1 UNIT/0.01 ML UNIT SQ SCH ×4 (07:46→11:49)
[2021-06-18] MEDS: PREGABALIN 25 MG CAPSULE PO SCH (09:14)
[2021-06-18] MEDS: MEMANTINE 10 MG TABLET PO SCH (09:14)
[2021-06-18] MEDS: ASPIRIN 81 MG TAB.CHEW PO SCH (09:14)
[2021-06-18] MEDS: HEPARIN 5,000 UNIT/ML VIAL SQ SCH (09:14)
[2021-06-18] MEDS: MUPIROCIN OINT 2% 22GM TOPICAL SCH (09:15)
[2021-06-18] MEDS: CEFEPIME 2 GM VIAL IV SCH (09:16)
[2021-06-18] MEDS: DOCUSATE SODIUM 100 MG CAPSULE PO SCH (10:14)
--- NOTE | 2021-06-18 10:19 | General Surgery Progress Note ---
SUBJECTIVE Subjective Patient information: Note initiated : 06/18/21 at 10:10 am Service Date, if different from initiated Date: [] Patient: Garth Chavez 75 y/o M admitted on 06/14/21 for Left Foot Wound. Chief Complaint: [] Additional PMFSH (Level 3 Only): Patient seen with Fredrick Alvarez RN. LEFT foot wound examined. Patient is feeling well. Ambulating NWB on fore foot better. Progress reviewed with Physical Therapy. Constitutional Vitals: Vital Signs Temp Pulse Resp BP Pulse Ox 98.7 F 59 L 14 137/79 97 06/18/21 07:04 06/18/21 07:04 06/18/21 07:04 06/18/21 07:04 06/18/21 07:04 Period Temp Pulse Resp BP Sys/Barry Pulse Ox Last 24 Hr 97.1 F-98.7 F 59-69 14-18 110-137/64-79 93-97 Intake and Output 06/17/21 06/18/21 06/18/21 21:59 05:59 13:59 Intake Total 1050 600 100 Balance 1050 600 100 Weight 184 lb 14.4 oz Intake & Output: Intake & Output 06/17/21 06/18/21 06/18/21 21:59 05:59 13:59 Intake Total 1050 600 100 Balance 1050 600 100 Weight 184 lb 14.4 oz Intake: IV 600 100 100 Vancomycin 1,500 mg In Sodium 500 Chloride 0.9% 500 ml @ 333.3 mls/hr IV Q24H [facility] Rx#: [id number] Flagyl 500 mg In Premix 1 Bag @ 100 100 100 100 mls/hr IV Q8H [facility] Rx#: [id number] Oral 450 500 Other: # Voids 2 3 Exam: AVSS. No changes SARAH. PICC line inserted. Labs: Leucocytosis / CRP trending down Creatinine improved 1.2 A1C is 10.2. TSH elevated > 5. Final wound c/s pending. Checked with lab: Strep agalactiae C/S pending. LEFT foot inflammatory changes resolved well. Need to continue with IV antibiotics and wound care. Recommend Synthroid medication and IV antibiotic. Continue ongoing wound care. A/P Narrative A/P Narrative: Assessment: Progressing well. See detailed note above . IV antibiotic and Synthroid per Hospitalist. Plan reviewed with Dr. Rod. Plan: If discharged f/u at wound care clinic in 1 week. Thanks. Time Spent With Patient Time: Total time spent is greater than 50% in coordination of care (as documented) at patient's floor/unit and/or counseling patient: Total time spent with greater than 50% in coordination of care (as documented) at patient's floor/unit and/or counseling patient:: 25 - 35 minutes
[2021-06-18] MEDS: VANCOMYCIN 1,500 MG in 0.9 % SODIUM CHLORIDE 500 ML IV SCH (11:02)
== END 2021-06-18 14:50 | disposition home health service (06) | DRG 638 ==
LOC: ED 09:19 → MEDSUR 15:51
PROVIDERS: ADMIT Internal Medicine; ATTEND Internal Medicine